=== PATIENT | male | born 1940 | race Caucasian/White ===

== ENCOUNTER 2020-09-17 11:16 | Outpatient (REF) | payer MEDICARE, SELFPAY ==
[2020-09-17 14:24] LABS: Glucose Urine UA NEG (NEG); Leukocyte Esterase Urine NEG (NEG); Nitrite Urine NEG (NEG); PH 5.5 (5.0-8.0); Specific Gravity - Urine >= 1.030 (1.005-1.025); Urine Blood NEG (NEG); Urine Ketones 15 MG/DL (NEG); Urine Protein TRACE MG/DL (NEG-TRACE)
[2020-09-17 14:29] LABS: Appearance Urine CLEAR; Color Urine YELLOW
[2020-09-17 14:32] LABS: Alanine Aminotransferase 23 U/L (0-40); Albumin Level 4.6 g/dL (3.5-5.0); Alkaline Phosphatase 65 U/L (39-117); Anion Gap 14 (12-20); Aspartate Amino Transferase 30 U/L (5-37); Bilirubin Total 0.5 mg/dL (0.0-1.0); Blood Urea Nitrogen 24 mg/dL (9-16); Calcium 8.8 mg/dL (8.4-10.2); Carbon Dioxide 27 mmol/L (22-29); Chloride 105 mmol/L (96-108); Cholesterol 140 mg/dL; Estimated Glomerular Filt Rate 47; Glucose Fasting 127 mg/dL (60-99); HDL Cholesterol 39 mg/dL; LDL Cholesterol Calculated 67 mg/dl; Potassium 4.5 mmol/L (3.3-5.1); Sodium 141 mmol/L (135-145); Total Protein 6.9 g/dL (6.5-8.0); Triglycerides 173 mg/dL
[2020-09-17 14:54] LABS: TSH reflex Free T4 5.44 uIU/mL (0.32-4.0)
[2020-09-17 15:30] LABS: Free T4 (Free Thyroxine) 0.76 ng/dL (0.71-1.85)
== END 2020-09-17 11:17 | disposition home or self-care (01) ==
LOC: HO.WFDLDS 11:16
PROVIDERS: Visit Provider Family Medicine
DX: Z00.00 Encounter for general adult medical examination without abnormal findings (principal); E11.9 Type 2 diabetes mellitus without complications; E78.5 Hyperlipidemia, unspecified; I10 Essential (primary) hypertension
CPT/HCPCS: 36415; 80053; 80061; 81003; 82043; 84439; 84443

== ENCOUNTER 2021-01-08 10:45 | Outpatient (REF) | payer MEDICARE, SELFPAY ==
[2021-01-08 14:28] LABS: Alanine Aminotransferase 21 U/L (0-40); Albumin Level 4.5 g/dL (3.5-5.0); Alkaline Phosphatase 89 U/L (39-117); Anion Gap 12 (12-20); Aspartate Amino Transferase 22 U/L (5-37); Bilirubin Total 0.4 mg/dL (0.0-1.0); Blood Urea Nitrogen 21 mg/dL (9-16); Calcium 8.5 mg/dL (8.4-10.2); Carbon Dioxide 24 mmol/L (22-29); Chloride 109 mmol/L (96-108); Estimated Glomerular Filt Rate 56; Glucose Random 146 mg/dL (60-115); Potassium 4.8 mmol/L (3.3-5.1); Sodium 140 mmol/L (135-145); Total Protein 6.6 g/dL (6.5-8.0)
[2021-01-08 14:50] LABS: Prostate Specific Antigen Scr 1.33 ng/mL (<0.05-4.0); TSH reflex Free T4 3.38 uIU/mL (0.32-4.0)
== END 2021-01-08 10:46 | disposition home or self-care (01) ==
LOC: HO.WFDLDS 10:45
PROVIDERS: Visit Provider Family Medicine
DX: R79.89 Other specified abnormal findings of blood chemistry (principal); Z12.5 Encounter for screening for malignant neoplasm of prostate
CPT/HCPCS: 36415; 80053; 84153; 84443

== ENCOUNTER 2021-06-29 10:16 | Outpatient (REF) | payer MEDICARE, SELFPAY ==
--- NOTE | ~2021-06-29 | XR_ITS ---
EXAMINATION: XR CHEST CLINICAL INFORMATION: Other specified symptoms and signs involving the... COMPARISON: Chest x-ray 10/26/2011 TECHNIQUE: 2 views of the chest were obtained. FINDINGS: Lungs are clear. No pulmonary vascular congestion. There is no pleural effusion. The heart size is normal. The cardiac and mediastinal contours are normal. There are multilevel degenerative changes of dorsal spine. XR/XR chest 2V IMPRESSION: Unremarkable examination.
[2021-06-29 11:23] LABS: Estimated Average Glucose 134 mg/dL; Hemoglobin A1C 135.1217 umol/L; Hemoglobin A1c % 6.3 %
[2021-06-29 11:46] LABS: Alanine Aminotransferase 25 U/L (0-40); Albumin Level 4.4 g/dL (3.5-5.0); Alkaline Phosphatase 44 U/L (39-117); Anion Gap 15 (12-20); Aspartate Amino Transferase 31 U/L (5-37); Bilirubin Total 0.6 mg/dL (0.0-1.0); Blood Urea Nitrogen 16 mg/dL (9-16); Calcium 8.6 mg/dL (8.4-10.2); Carbon Dioxide 22 mmol/L (22-29); Chloride 108 mmol/L (96-108); Cholesterol 138 mg/dL; Estimated Glomerular Filt Rate 52; Glucose Fasting 131 mg/dL (60-99); HDL Cholesterol 39 mg/dL; LDL Cholesterol Calculated 60 mg/dl; Sodium 141 mmol/L (135-145); Total Protein 6.7 g/dL (6.5-8.0); Triglycerides 196 mg/dL
[2021-06-29 11:53] LABS: TSH reflex Free T4 5.14 uIU/mL (0.32-4.0)
== END 2021-06-29 10:17 | disposition home or self-care (01) ==
LOC: HO.XRAY 10:16
PROVIDERS: PCP Family Medicine; Visit Provider Family Medicine
DX: Z00.00 Encounter for general adult medical examination without abnormal findings (principal); R73.01 Impaired fasting glucose; R05.9 Cough, unspecified; R09.89 Other specified symptoms and signs involving the circulatory and respiratory systems
CPT/HCPCS: 36415; 71046; 80053; 80061; 83036; 84439; 84443

== ENCOUNTER 2021-08-12 11:47 | Outpatient (REF) | payer MEDICARE, SELFPAY ==
[2021-08-12 14:15] LABS: Free T4 (Free Thyroxine) 0.75 ng/dL (0.71-1.85); Thyroid Stimulating Hormone 4.63 uIU/mL (0.32-4.0)
[2021-08-13 07:56] LABS: Triiodothyronine T3 Total 83 ng/dL (76-181)
== END 2021-08-12 11:48 | disposition home or self-care (01) ==
LOC: HO.WFDLDS 11:47
PROVIDERS: Visit Provider Family Medicine
DX: E03.9 Hypothyroidism, unspecified (principal); R79.89 Other specified abnormal findings of blood chemistry
CPT/HCPCS: 36415; 84439; 84443; 84480

== ENCOUNTER 2021-09-09 11:13 | Outpatient (REF) | payer MEDICARE, SELFPAY ==
[2021-09-09 14:38] LABS: TSH reflex Free T4 6.06 uIU/mL (0.32-4.0)
[2021-09-09 15:12] LABS: Free T4 (Free Thyroxine) 0.65 ng/dL (0.71-1.85)
== END 2021-09-09 11:14 | disposition home or self-care (01) ==
LOC: HO.WFDLDS 11:13
PROVIDERS: Visit Provider Family Medicine
DX: Z00.00 Encounter for general adult medical examination without abnormal findings (principal); Z13.29 Encounter for screening for other suspected endocrine disorder
CPT/HCPCS: 36415; 84439; 84443

== ENCOUNTER 2021-11-15 12:32 | Outpatient (REF) | payer SELFPAY | END 2021-11-15 12:33 | disposition home or self-care (01) | LOC: HO.HAP 12:32 | PROVIDERS: Visit Provider Family Medicine | DX: Z46.1 Encounter for fitting and adjustment of hearing aid (principal); H90.3 Sensorineural hearing loss, bilateral | CPT/HCPCS: V5266 ==

== ENCOUNTER 2022-02-18 11:40 | Outpatient (REF) | payer MEDICARE, SELFPAY ==
[2022-02-18 11:56] LABS: MANUAL DIFF FLAG NO
[2022-02-18 12:14] LABS: Basophils Percent Auto 0.9 % (0-2); Eosinophils Absolute Auto 0.2 X10*3/uL (0.0-0.4); Hematocrit 39.3 % (42.0-52.0); Imm Gran Abs Auto 0.02 X10*3/uL (0.00-0.03); Imm Gran Pct Auto 0.4 % (0.0-0.4); Lymphocytes Absolute Auto 1.1 X10*3/uL (1.2-4.9); Lymphocytes Percent Auto 24.7 % (20-40); Mean Corpuscular HGB Conc 33.1 g/dl (31.0-36.0); Mean Corpuscular Hemoglobin 29.8 pg (27.0-33.0); Mean Corpuscular Volume 90.1 fL (80.0-98.0); Mean Platelet Volume 9.4 fL (9.4-12.4); Monocytes Absolute Auto 0.6 X10*3/uL (0.1-1.2); Monocytes Percent Auto 12.7 % (2-11); Neutrophils Absolute Auto 2.6 x10*3/uL (2.0-8.3); Neutrophils Percent Auto 57.3 % (45-73); Platelet Count 138 X10*3/uL (160-400); Red Blood Count 4.36 X10*6/uL (4.60-5.80); Red Cell Distribution Width 12.9 % (11.0-16.0); White Blood Count 4.5 X10*3/uL (4.8-10.8)
[2022-02-18 12:32] LABS: Appearance Urine CLEAR; Color Urine YELLOW; Glucose Urine UA NEG (NEG); Leukocyte Esterase Urine NEG (NEG); Nitrite Urine NEG (NEG); Specific Gravity - Urine 1.025 (1.005-1.025); Urine Blood NEG (NEG); Urine Ketones NEG (NEG); Urine Protein NEG (NEG-TRACE)
[2022-02-18 14:01] LABS: Creatinine Urine 152.98 mg/dL; Microalbum/Creatinine Ratio Ur 13.7 ug/mg cr
[2022-02-18 14:07] LABS: Alanine Aminotransferase 30 U/L (0-40); Albumin Level 4.7 g/dL (3.5-5.0); Alkaline Phosphatase 63 U/L (39-117); Anion Gap 15 (12-20); Aspartate Amino Transferase 32 U/L (5-37); Bilirubin Total 0.7 mg/dL (0.0-1.0); Blood Urea Nitrogen 31 mg/dL (9-16); Calcium 8.9 mg/dL (8.4-10.2); Carbon Dioxide 23 mmol/L (22-29); Chloride 107 mmol/L (96-108); Cholesterol 145 mg/dL; Estimated Glomerular Filt Rate 48; Glucose Fasting 141 mg/dL (60-99); HDL Cholesterol 42 mg/dL; LDL Cholesterol Calculated 67 mg/dl; Sodium 140 mmol/L (135-145); Total Protein 7.1 g/dL (6.5-8.0); Triglycerides 180 mg/dL
[2022-02-18 14:13] LABS: Prostate Specific Antigen Scr 1.61 ng/mL (<0.05-4.0); TSH reflex Free T4 3.05 uIU/mL (0.32-4.0)
== END 2022-02-18 11:41 | disposition home or self-care (01) ==
LOC: HO.LAB 11:40
PROVIDERS: PCP Family Medicine; Visit Provider Family Medicine
DX: Z00.00 Encounter for general adult medical examination without abnormal findings (principal); Z12.5 Encounter for screening for malignant neoplasm of prostate; I10 Essential (primary) hypertension
CPT/HCPCS: 36415; 80053; 80061; 81003; 82043; 84153; 84443; 85025

== ENCOUNTER 2022-04-01 11:36 | Outpatient (REF) | payer MEDICARE, SELFPAY ==
[2022-04-01 12:45] LABS: Immature Retic Fraction 11.8 % (2.3-13.4); Retic HGB Equivalent 34.9 pg (30.0-35.0); Reticulocyte Percent 2.3 % (0.5-1.8); Reticulocytes Absolute 0.097 X10*6/uL (0.026-0.095)
[2022-04-01 13:05] LABS: Iron 85 mcg/dL (45-160); Percent Iron Saturation 19 % (15-50); Total Iron Binding Capacity 459 mcg/dL (228-428); Unsaturated Iron Binding 374 ug/dL
[2022-04-01 13:27] LABS: Ferritin 50 ng/mL (20-250)
[2022-04-01 13:37] LABS: Folate 12.2 ng/mL (> or = 4.0); Vitamin B12 332 pg/mL (200-900)
== END 2022-04-01 11:37 | disposition home or self-care (01) ==
LOC: HO.LAB 11:36
PROVIDERS: PCP Family Medicine; Visit Provider Nurse Practitioner Family
DX: D64.9 Anemia, unspecified (principal)
CPT/HCPCS: 36415; 82607; 82728; 82746; 83540; 85045

== ENCOUNTER → 2022-04-11 10:39 | Outpatient (BNV) | payer MEDICARE, SELFPAY | PROVIDERS: PCP Family Medicine; Referring Provider Nurse Practitioner Family; Visit Provider Internal Medicine | DX: D61.818 Other pancytopenia (principal); D64.9 Anemia, unspecified; D73.1 Hypersplenism | CPT/HCPCS: 99204; 99214; G2211 ==

== ENCOUNTER 2022-04-22 12:47 | Outpatient (REF) | payer MEDICARE, SELFPAY ==
--- NOTE | ~2022-04-22 | US_ITS ---
EXAMINATION: US ABDOMEN COMPLETE CLINICAL INFORMATION: Question splenomegaly. COMPARISON: None TECHNIQUE: Real-time imaging of the abdominal viscera. FINDINGS: PANCREAS: Normal. ABDOMINAL AORTA: The proximal, mid, and distal segments are normal in caliber. INFERIOR VENA CAVA: Visualized portions are normal. LIVER: Liver parenchyma is hyperechoic, consistent with steatosis. No focal liver lesion or intrahepatic bile duct dilatation. GALLBLADDER: The gallbladder is physiologically distended and contains mild amount of sludge and a few small echogenic stones. No gallbladder wall thickening or pericholecystic fluid. COMMON BILE DUCT: Normal in caliber measuring 0.4 cm in diameter. RIGHT KIDNEY: Normal size. The kidney measures 11.4 cm in maximum dimension. No nephrolithiasis or hydronephrosis. 1.5 cm simple cortical cyst in the interpolar area. No renal imaging follow-up recommended. LEFT KIDNEY: Normal. No hydronephrosis. No renal calculi or focal parenchymal lesions. The kidney measures 10.4 cm in maximum dimension. SPLEEN: Spleen borderline enlarged; it measures 13.5 cm in maximum dimension. No focal splenic lesion or perisplenic fluid. FREE FLUID: None. US/US abdomen complete IMPRESSION: * Diffuse hepatic steatosis. * There is a borderline enlarged spleen. The spleen measures up to 13.5 cm maximum dimension. * Mild cholelithiasis without cholecystitis or biliary tract obstruction.
== END 2022-04-22 12:48 | disposition home or self-care (01) ==
LOC: HO.US 12:47
PROVIDERS: Visit Provider Internal Medicine
DX: D61.818 Other pancytopenia (principal)
CPT/HCPCS: 76700

== ENCOUNTER 2022-06-28 12:50 | Outpatient (REF) | payer SELFPAY | END 2022-06-28 12:51 | disposition home or self-care (01) | LOC: HO.HAP 12:50 | PROVIDERS: Visit Provider Family Medicine | DX: Z46.1 Encounter for fitting and adjustment of hearing aid (principal); H90.3 Sensorineural hearing loss, bilateral | CPT/HCPCS: V5267 ==

== ENCOUNTER 2022-10-05 12:08 | Outpatient (REF) | payer MEDICARE, SELFPAY ==
[2022-10-05 12:26] LABS: MANUAL DIFF FLAG NO
[2022-10-05 12:33] LABS: Eosinophils Absolute Auto 0.1 X10*3/uL (0.0-0.4); Eosinophils Percent Auto 1.9 % (0-4); Hemoglobin 12.2 g/dl (14.0-18.0); Imm Gran Abs Auto 0.03 X10*3/uL (0.00-0.03); Imm Gran Pct Auto 0.7 % (0.0-0.4); Lymphocytes Absolute Auto 0.5 X10*3/uL (1.2-4.9); Lymphocytes Percent Auto 12.6 % (20-40); Mean Corpuscular Hemoglobin 30.1 pg (27.0-33.0); Mean Corpuscular Volume 91.4 fL (80.0-98.0); Monocytes Absolute Auto 0.5 X10*3/uL (0.1-1.2); Monocytes Percent Auto 12.6 % (2-11); Neutrophils Percent Auto 71.2 % (45-73); Platelet Count 172 X10*3/uL (160-400); Red Blood Count 4.05 X10*6/uL (4.60-5.80); White Blood Count 4.2 X10*3/uL (4.8-10.8)
[2022-10-05 12:54] LABS: Alanine Aminotransferase 28 U/L (0-40); Albumin Level 4.3 g/dL (3.5-5.0); Alkaline Phosphatase 53 U/L (39-117); Anion Gap 14 (12-20); Aspartate Amino Transferase 37 U/L (5-37); Bilirubin Total 0.7 mg/dL (0.0-1.0); Blood Urea Nitrogen 28 mg/dL (9-16); Carbon Dioxide 19 mmol/L (22-29); Chloride 110 mmol/L (96-108); Estimated Glomerular Filt Rate 43; Glucose Fasting 154 mg/dL (60-99); Potassium 5.2 mmol/L (3.3-5.1); Sodium 138 mmol/L (135-145); Total Protein 6.8 g/dL (6.5-8.0)
[2022-10-05 14:26] LABS: Estimated Average Glucose 143 mg/dL; Hemoglobin A1c % 6.6 %
== END 2022-10-05 12:09 | disposition home or self-care (01) ==
LOC: HO.LAB 12:08
PROVIDERS: PCP Family Medicine; Visit Provider Family Medicine
DX: Z00.00 Encounter for general adult medical examination without abnormal findings (principal); R73.01 Impaired fasting glucose
CPT/HCPCS: 36415; 80053; 83036; 85025

== ENCOUNTER 2022-10-06 15:24 | Outpatient (REF) | payer MEDICARE, SELFPAY ==
--- NOTE | ~2022-10-06 | XR_ITS ---
EXAMINATION: XR CHEST CLINICAL INFORMATION: Cough COMPARISON: 06/29/2021 TECHNIQUE: 2 views of the chest were obtained. FINDINGS: The lungs are well expanded. There is no focal consolidation, edema, or effusion. No pneumothorax. The cardiomediastinal silhouette is within normal limits. No acute osseous abnormality. Degenerative changes throughout the spine. XR/XR chest 2V IMPRESSION: Clear lungs.
[2022-10-06 19:50] LABS: Influenza A PCR NEGATIVE (Negative); Influenza B PCR NEGATIVE (Negative); Resp Syncy Virus RNA Qual PCR NEGATIVE (Negative); SARS COV2 PCR INHOUSE POSITIVE (Negative)
== END 2022-10-06 15:25 | disposition home or self-care (01) ==
LOC: HO.HMGCX 15:24
PROVIDERS: PCP Family Medicine; Visit Provider Physician Assistant Medical
DX: Z20.822 Contact with and (suspected) exposure to COVID-19 (principal); R05.9 Cough, unspecified
CPT/HCPCS: 0241U; 71046

== ENCOUNTER 2022-12-09 12:34 | Outpatient (REF) | payer SELFPAY | END 2022-12-09 12:35 | disposition home or self-care (01) | LOC: HO.HAP 12:34 | PROVIDERS: Visit Provider Family Medicine | DX: Z46.1 Encounter for fitting and adjustment of hearing aid (principal) | CPT/HCPCS: V5266 ==

== ENCOUNTER 2023-01-16 12:34 | Outpatient (REF) | payer SELFPAY | END 2023-01-16 12:35 | disposition home or self-care (01) | LOC: HO.HAP 12:34 | PROVIDERS: Visit Provider Family Medicine | DX: Z46.1 Encounter for fitting and adjustment of hearing aid (principal); H90.3 Sensorineural hearing loss, bilateral | CPT/HCPCS: V5267 ==

== ENCOUNTER 2023-02-24 14:34 | Outpatient (AMB) | payer MEDICARE, SELFPAY ==
[2023-02-24 14:45] VITALS: BP 126/74; PULSE 74; O2SAT 96; BMI 29.3
--- NOTE | 2023-02-24 14:45 | MHC.PC.OV ---
Vital Signs 02/24/23 14:45 Height 5 ft 11 in Weight 210 lb BMI 29.3 BP 126/74 Blood Pressure Location Lt brachial Position Sitting Pulse 74 Pulse Source Pulse Oximeter Pulse Oximetry (%) 96 Oxygen Delivery Method Room Air Intake Visit Reasons: F/u-Diabetes - due for Microalbumin Intake Note: Patient is here to follow up on diabetes. Allergies No Known Allergies [No Known Allergies*] Allergy (Verified 02/24/23 14:48) Medication List - Last Reconciled 02/24/23 by Naga Leon MD albuterol sulfate 90 mcg/actuation (ProAir HFA) 2 puffs inhalation Q4-6H PRN 30 days amoxicillin-pot clavulanate 875-125 mg 1 tab PO BID ferrous sulfate (Feosol) 325 mg PO DAILY lisinopril 20 mg PO DAILY 90 days lorazepam 1 mg PO BID 30 days metformin 1,000 mg PO BID omeprazole 20 mg PO DAILY 90 days oseltamivir 75 mg PO Q12H 5 days sertraline 100 mg PO DAILY simvastatin 40 mg PO DAILY 90 days Tobacco use date assessed: 02/24/23 Fall risk assessment: No Falls in past year Last assessed Fall Risk: 02/24/23 Dental Screening Dental Screen Date: 02/24/23 Did you have a dental visit in the last 12 months?: Yes Did you have a dental problem in the last 6 months where you did not have access to dental care?: No Was dental information given to patient?: No HPI F/u-Diabetes - due for Microalbumin HPI Details 82 y/o male presents to f/u diabetes and hypertension. Last A1c 11/22/21 was 6.6%. A1c today 02/24/23 is 6.3%. He is on metformin 1000mg b.i.d. Blood pressure today is 126/74. He is on lisinopril 20mg daily. Recent eye exam was fine and showed no diabetic retinopathy. [facility] Surgical History No pertinent past surgical history Family History Brother Prostate cancer Son Muscular dystrophy Social History Household Members: Children Housing: House Alcohol intake: never Patient Tobacco Use Status: Never used Tobacco e-Cigarette/Vaping Use: Never Used Second Hand Smoke Exposure: No service: No Current occupational status: retired Current occupational exposures/hazards: No Cognitive needs: No Hearing needs: Yes (hearing aide) Vision needs: No Questionnaire PHQ-9 Over the last 2 weeks, how often have you been bothered by any of the following problems? 1. Little interest or pleasure in doing things: not at all 2. Feeling down, depressed, or hopeless: not at all 3. Trouble falling or staying asleep, or sleeping too much: not at all 4. Feeling tired or having little energy: not at all 5. Poor appetite or overeating: not at all 6. Feeling bad about yourself - or that you are a failure or have let yourself or your family down: not at all 7. Trouble concentrating on things, such as reading the newspaper or watching television: not at all 8. Moving or speaking so slowly that other people could have noticed. Or the opposite - being so fidgety or restless that you have been moving around a lot more than usual: not at all 9. Thoughts that you would be better off or of hurting yourself in some way: not at all Total score: 0 Source: Developed by Drs. Mayco Pelletier, Rachel Hu, Roge Fairchild and colleagues, with an educational sylvain from [employer]. Thrive Questionnaire I am a: Patient What is your living situation today?: I have a steady place to live Within the past 12 months, did the food you bought not last and you didn't have the money to get more?: Never true Within the past 12 months, did you worry whether your food would run out before you got money to buy more?: Never true Do you have trouble paying for medicines?: No Do you have trouble getting transportation to medical appointments?: No Do you have trouble paying your heating and electricity bill?: No Do you have trouble taking care of your child, family member or friend?: No Do you have trouble with day-to-day activities such as bathing, preparing meals, shopping, managing finances, etc.?: No Are you currently unemployed and looking for a job?: No Are you interested in more education?: No AUDIT C Alcohol Use Questionnaire (AUDIT-C) 1. How often do you have a drink containing alcohol?: Never 3. How often do you have six or more drinks on one occasion?: Never Total Score: 0 KOMAL-7 AMB Questionnaire KOMAL-7 Date KOMAL - 7 assessed: 03/14/22 Feeling nervous, anxious, or on edge: 1 = Several days Not being able to stop or control worryin = Several days Worrying too much about different things: 1 = Several days Trouble relaxin = Not at all Being so restless that it is hard to sit still: 0 = Not at all Becoming easily annoyed or irritable: 1 = Several days Feeling afraid as if something awful might happen: 0 = Not at all Total KOMAL-7 score (0-4 normal; 5-9 mild; 10-14 moderate; 15-21 severe): 4 Source: Developed by Drs. Mayco Pelletier, Rachel Hu, Roge Fairchild and colleagues, with an educational sylvain from [employer]. Review of Systems Const Denies chills, Denies fatigue, Denies fever(s), Denies headache(s) and Denies weakness ENT Denies dizziness and Denies headache(s) Card Denies chest pain, Denies lightheadedness, Denies dyspnea and Denies other (Palpitations) Resp Denies cough, Denies dyspnea, Denies wheezing and Denies other ( shortness of breath) Musc Denies numbness and Denies tingling Neuro Denies dizziness, Denies headache(s), Denies numbness, Denies tingling, Denies paresthesias and Denies weakness Psych Denies anxiety and Denies depression Endo Denies fatigue Aller/Immun Denies wheezing Physical exam (Primary Care) Vital Signs: Last Vital Signs Pulse 74 02/24/23 14:45 BP 126/74 02/24/23 14:45 Pulse Ox 96 02/24/23 14:45 Oxygen Delivery Method Room Air 02/24/23 14:45 BMI result Body Mass Index 29.3 Tobacco/Smoking Status: Tobacco use Status Tobacco use date assessed 02/24/23 02/24/23 15:01 Patient Tobacco Use Status Never used Tobacco 02/24/23 15:01 e-Cigarette/Vaping Use Never Used 02/24/23 15:01 PHQ-9: PHQ-9 Score PHQ-9: Total score 0 02/24/23 15:01 Const General: no acute distress and well developed Nutritional Appearance: well nourished Orientation/consciousness: patient oriented x3 HENMT Head: Yes normocephalic and Yes atraumatic Eyes General: appearance normal, both eyes and all related structures Pupils: Equal, round and reactive pupils present EOM: EOMs intact bilaterally Resp Effort & Inspection: normal respiratory effort Auscultation: clear to auscultation bilaterally Cardio Rate: regular rate Rhythm: regular rhythm Heart sounds: S1 normal heart sound present, S2 normal heart sound present, no gallops, no murmurs and no rubs Neuro General: patient oriented x3 and gait normal Cranial nerves: Yes Equal, round and reactive pupils present Psych Affect: normal affect Results AMB Hemoglobin A1c AMB Hemoglobin A1c 6.3 % Last Edit by Claudia Summers CMA on 02/24/23 15:11 Assessment and Plan Assessment & Plan (1) Diabetes type 2, controlled: Code(s): E11.9 - Type 2 diabetes mellitus without complications Plan: A1c 6.3% which is good control. Goal is less than 7.0% Continue current medication regimen Due for urine microalbumin testing which will be performed today Recent eye exam in December showed no diabetic retinopathy (2) Essential hypertension: Code(s): I10 - Essential (primary) hypertension Plan: Blood pressure is controlled. Goal is less than 140/90 Continue current medication regimen (3) Immunization counseling: Code(s): Z71.85 - Encounter for immunization safety counseling Plan: Discussed flu, COVID and RSV vaccines which patient will get in the fall (4) Elevated serum creatinine: Code(s): R79.89 - Other specified abnormal findings of blood chemistry Plan: He has had mildly elevated creatinine levels Will follow this If worsening, may need to adjust his metformin Orders: Orders Microalbumin, Random (w Creat) Today E11.9 - Type 2 diabetes mellitus without complications, I10 - Essential (primary) hypertension Comprehensive [place]. Panel Fast Today E11.9 - Type 2 diabetes mellitus without complications, Z00.00 - Encounter for general adult medical examination without abnormal findings Lipid Panel Today E11.9 - Type 2 diabetes mellitus without complications, Z00.00 - Encounter for general adult medical examination without abnormal findings Prostate Specific Antigen Scr Today E11.9 - Type 2 diabetes mellitus without complications, Z12.5 - Encounter for screening for malignant neoplasm of prostate TSH reflex Free T4 Today E11.9 - Type 2 diabetes mellitus without complications, Z00.00 - Encounter for general adult medical examination without abnormal findings Complete Blood Count Auto Diff Today E11.9 - Type 2 diabetes mellitus without complications, Z00.00 - Encounter for general adult medical examination without abnormal findings UA and rflx microscopic Today E11.9 - Type 2 diabetes mellitus without complications, Z00.00 - Encounter for general adult medical examination without abnormal findings AMB Hemoglobin A1c Today Z13.9 - Encounter for screening, unspecified Medications: Refilled lorazepam MassPat verified. Partial refill upon request. 1 mg PO BID 30 days 60 tabs 0RF E11.9 - Type 2 diabetes mellitus without complications Coding Level of Care Code Est Pt Level 4 (52719) Diagnoses Diabetes type 2, controlled E11.9 Essential hypertension I10 Immunization counseling Z71.85 Elevated serum creatinine R79.89
== END 2023-02-24 15:25 | disposition home or self-care (01) ==
PROVIDERS: Visit Provider Family Medicine
DX: E11.9 Type 2 diabetes mellitus without complications (principal); I10 Essential (primary) hypertension; Z71.85 Encounter for immunization safety counseling; R79.89 Other specified abnormal findings of blood chemistry; Z13.9 Encounter for screening, unspecified
CPT/HCPCS: 83036; 99214

== ENCOUNTER 2023-02-24 18:28 | Outpatient (REF) | payer MEDICARE, SELFPAY ==
[2023-02-24 18:54] LABS: Creatinine Urine 106.58 mg/dL; Microalbum/Creatinine Ratio Ur 9.3 ug/mg cr
== END 2023-02-24 18:29 | disposition home or self-care (01) ==
LOC: HO.LNP 18:28
PROVIDERS: Visit Provider Family Medicine
DX: E11.9 Type 2 diabetes mellitus without complications (principal); I10 Essential (primary) hypertension
CPT/HCPCS: 82043

== ENCOUNTER 2023-04-03 09:52 | Outpatient (AMB) | payer MEDICARE, SELFPAY ==
--- NOTE | 2023-04-03 10:45 | MHC.OFFWIV ---
Intake Vital Signs 04/03/23 10:46 Weight 205 lb BP 112/66 Blood Pressure Location Rt brachial Position Sitting Pulse 78 Pulse Source Pulse Oximeter Pulse Oximetry (%) 97 Oxygen Delivery Method Room Air Intake Visit Reasons: EP LT Knee Intake Note: Patient here because he injured his left knee when he fell while working in the yard. Patient Tobacco Use Status: Never used Tobacco Allergies No Known Allergies [No Known Allergies*] Allergy (Verified 02/24/23 14:48) Do you need a note to return to daycare/school/sports/work: No HPI EP LT Knee HPI Details 82-year-old male presents to the office for a sick visit. Patient reports pain in the left knee in the past week. Symptoms started after he fell while mowing the lawn. Patient is experiencing sharp pain on the left side of the knee. Walking with a limp. PFS Surgical History No pertinent past surgical history Family History Brother Prostate cancer Son Muscular dystrophy Social History Household Members: Children Housing: House Alcohol intake: never Patient Tobacco Use Status: Never used Tobacco e-Cigarette/Vaping Use: Never Used Second Hand Smoke Exposure: No service: No Current occupational status: retired Current occupational exposures/hazards: No Cognitive needs: No Hearing needs: Yes (hearing aide) Vision needs: No Physical Exam Vital Signs: Last Vital Signs Pulse 78 04/03/23 10:46 BP 112/66 04/03/23 10:46 Pulse Ox 97 04/03/23 10:46 Oxygen Delivery Method Room Air 04/03/23 10:46 Const General: cooperative and healthy appearing Nutritional Appearance: well nourished Orientation/consciousness: patient oriented x3 Limitations: no limitations HEENT Head: Yes normal to inspection Eyes General: appearance normal, both eyes and all related structures Neck Neck: Yes normal visual inspection Chest Chest palpation & inspection: normal palpation of entire chest wall Resp Effort & Inspection: normal respiratory effort Neuro General: patient oriented x3 Extrem Other: Knee: Tenderness on palpation on the medial side of the joint. Full range of motion. Assessment & Plan Assessment & Plan (1) Sprain of left knee: Code(s): S83.92XA - Sprain of unspecified site of left knee, initial encounter Plan: . Knee brace provided. Anti-inflammatories given. X-ray images were personally reviewed by me. If symptoms not better to follow-up Coding Level of Care Code Est Pt Level 4 (45216) Diagnoses Sprain of left knee S83.92XA
[2023-04-03 10:46] VITALS: BP 112/66; PULSE 78; O2SAT 97
== END 2023-04-03 11:50 | disposition home or self-care (01) ==
PROVIDERS: PCP Family Medicine; Visit Provider Internal Medicine
DX: S83.92XA Sprain of unspecified site of left knee, initial encounter (principal)
CPT/HCPCS: 99214

== ENCOUNTER 2023-04-03 09:54 | Outpatient (REF) | payer MEDICARE, SELFPAY ==
--- NOTE | ~2023-04-03 | XR_ITS ---
EXAMINATION: XR KNEE, LEFT CLINICAL INFORMATION: Sprain COMPARISON: None available. TECHNIQUE: Four views of the left knee. FINDINGS: Bone alignment is normal. No fracture or dislocation. The femoral tibial joints are normal. There are osteophytes at the patellofemoral joint. There is an osteophyte at the quadriceps tendon insertion to the patella. There is no significant joint effusion. XR/XR knee LT 4V IMPRESSION: Degenerative changes.
[2023-04-03 11:50] LABS: MANUAL DIFF FLAG NO
[2023-04-03 12:11] LABS: Basophils Absolute Auto 0.1 X10*3/uL (0.0-0.2); Basophils Percent Auto 1.7 % (0-2); Eosinophils Absolute Auto 0.1 X10*3/uL (0.0-0.4); Eosinophils Percent Auto 2.1 % (0-4); Hemoglobin 12.4 g/dl (14.0-18.0); Imm Gran Abs Auto 0.02 X10*3/uL (0.00-0.03); Imm Gran Pct Auto 0.5 % (0.0-0.4); Lymphocytes Absolute Auto 1.4 X10*3/uL (1.2-4.9); Lymphocytes Percent Auto 33.6 % (20-40); Mean Corpuscular HGB Conc 33.5 g/dl (31.0-36.0); Mean Corpuscular Hemoglobin 30.8 pg (27.0-33.0); Mean Corpuscular Volume 91.8 fL (80.0-98.0); Mean Platelet Volume 9.8 fL (9.4-12.4); Monocytes Absolute Auto 0.5 X10*3/uL (0.1-1.2); Neutrophils Absolute Auto 2.2 x10*3/uL (2.0-8.3); Neutrophils Percent Auto 51.1 % (45-73); Platelet Count 144 X10*3/uL (160-400); Red Blood Count 4.03 X10*6/uL (4.60-5.80); Red Cell Distribution Width 12.1 % (11.0-16.0); White Blood Count 4.2 X10*3/uL (4.8-10.8)
[2023-04-03 12:33] LABS: Prostate Specific Antigen Scr 1.73 ng/mL (<0.05-4.0)
[2023-04-03 12:42] LABS: Alanine Aminotransferase 25 U/L (0-40); Albumin Level 4.6 g/dL (3.5-5.0); Alkaline Phosphatase 53 U/L (39-117); Anion Gap 16 (12-20); Aspartate Amino Transferase 29 U/L (5-37); Bilirubin Total 0.6 mg/dL (0.0-1.0); Blood Urea Nitrogen 31 mg/dL (9-16); Calcium 9.8 mg/dL (8.4-10.2); Carbon Dioxide 18 mmol/L (22-29); Chloride 110 mmol/L (96-108); Cholesterol 139 mg/dL (<200); Estimated Glomerular Filt Rate 36; Glucose Fasting 139 mg/dL (60-99); HDL Cholesterol 42 mg/dL (>40); LDL Cholesterol Calculated 53 mg/dL (<100); Potassium 4.5 mmol/L (3.3-5.1); Sodium 139 mmol/L (135-145); Total Protein 7.2 g/dL (6.5-8.0); Triglycerides 220 mg/dL (<150)
[2023-04-03 12:47] LABS: TSH reflex Free T4 6.67 uIU/mL (0.32-4.0)
[2023-04-03 13:23] LABS: Free T4 (Free Thyroxine) 0.67 ng/dL (0.71-1.85)
[2023-04-03 14:19] LABS: Appearance Urine Clear; Color Urine Yellow; Glucose Urine UA Negative (Negative); Leukocyte Esterase Urine Negative (Negative); Nitrite Urine Negative (Negative); PH 5.5 (5.0-9.0); Specific Gravity - Urine 1.025 (1.005-1.025); Urine Blood Negative (Negative); Urine Ketones Trace mg/dL (Negative); Urine Protein Trace mg/dL (Neg-Trace)
== END 2023-04-03 09:55 | disposition home or self-care (01) ==
LOC: HO.HMGCLDS 09:54
PROVIDERS: PCP Family Medicine; Visit Provider Family Medicine
DX: Z00.00 Encounter for general adult medical examination without abnormal findings (principal); Z12.5 Encounter for screening for malignant neoplasm of prostate; E11.9 Type 2 diabetes mellitus without complications; S83.92XA Sprain of unspecified site of left knee, initial encounter
CPT/HCPCS: 36415; 73564; 80053; 80061; 81003; 84153; 84439; 84443; 85025

== ENCOUNTER 2023-05-01 10:50 | Outpatient (REF) | payer MEDICARE, SELFPAY ==
[2023-05-01 12:18] LABS: Alanine Aminotransferase 19 U/L (0-40); Albumin Level 4.4 g/dL (3.5-5.0); Alkaline Phosphatase 52 U/L (39-117); Anion Gap 12 (12-20); Aspartate Amino Transferase 25 U/L (5-37); Bilirubin Total 0.6 mg/dL (0.0-1.0); Blood Urea Nitrogen 23 mg/dL (9-16); Carbon Dioxide 21 mmol/L (22-29); Chloride 110 mmol/L (96-108); Estimated Glomerular Filt Rate 43; Glucose Random 123 mg/dL (60-115); Potassium 4.3 mmol/L (3.3-5.1); Sodium 139 mmol/L (135-145); Total Protein 6.7 g/dL (6.5-8.0)
[2023-05-01 12:44] LABS: Thyroid Stimulating Hormone 7.07 uIU/mL (0.32-4.0)
[2023-05-02 22:42] LABS: Triiodothyronine T3 Total 73 ng/dL (76-181)
== END 2023-05-01 10:51 | disposition home or self-care (01) ==
LOC: HO.LAB 10:50
PROVIDERS: PCP Family Medicine; Visit Provider Family Medicine
DX: E03.9 Hypothyroidism, unspecified (principal); I10 Essential (primary) hypertension
CPT/HCPCS: 36415; 80053; 84439; 84443; 84480

== ENCOUNTER 2023-05-29 14:04 | Outpatient (AMB) | payer MEDICARE, SELFPAY ==
[2023-05-29 14:13] VITALS: BP 122/72; PULSE 82; O2SAT 96; BMI 28.7
--- NOTE | 2023-05-29 14:13 | A.OFFPC_ITS ---
Vital Signs 05/29/23 14:13 Height 5 ft 11 in Weight 206 lb BMI 28.7 BP 122/72 Blood Pressure Location Lt brachial Position Sitting Pulse 82 Pulse Source Pulse Oximeter Pulse Oximetry (%) 96 Oxygen Delivery Method Room Air Intake Visit Reasons: Extended exam with f/u labs and health maintenance Intake Note: Patient is here for follow up labs and health maintenance. Patient would like refills on his Simvastatin and Lorazepam. Allergies No Known Allergies [No Known Allergies*] Allergy (Verified 05/29/23 14:16) Tobacco use date assessed: 02/24/23 HPI Extended exam with f/u labs and health maintenance HPI Details 82 y/o male presents for an extended exa m with f/u labs and health maintenance. Labs were drawn 04/03/23. Reviewed labs with pt. Ongoing anemia. Last creatinine level 1.56 on 05/01/23. Triglycerides 220. TC 139. LDL 53. HDL 42. TSH elevated at 6.67. A1c today 05/29/23 is 6.4%. He is on metformin 1000mg b.i.d. Pt reports he does not remember when his last colonoscopy was. [facility] Surgical History No pertinent past surgical history Family History Brother Prostate cancer Son Muscular dystrophy Social History Household Members: Children Housing: House Alcohol intake: never Patient Tobacco Use Status: Never used Tobacco e-Cigarette/Vaping Use: Never Used Second Hand Smoke Exposure: No service: No Current occupational status: retired Current occupational exposures/hazards: No Cognitive needs: No Hearing needs: Yes (hearing aide) Vision needs: No Questionnaire KOMAL-7 AMB Questionnaire KOMAL-7 Date KOMAL - 7 assessed: 03/14/22 Source: Developed by Drs. Mayco Pelletier, Rachel Hu, Roge Fairchild and colleagues, with an educational sylvain from [employer]. Review of Systems Const Denies chills, Denies fatigue, Denies fever(s), Denies headache(s) and Denies weakness Eyes Denies change in vision ENT Denies dizziness, Denies headache(s), Denies hearing loss, Denies nasal congestion, Denies sinus pain, Denies sinus pressure and Denies sore throat Card Denies chest pain, Denies lightheadedness, Denies dyspnea and Denies other (palpitations) Resp Denies cough, Denies dyspnea and Denies wheezing GI Denies abdominal pain, Denies melena, Denies hematochezia, Denies change in bowel habits, Denies dyspepsia and Denies nausea Denies hematuria and Denies dysuria Musc Denies abnormal gait, Denies myalgias, Denies arthralgias, Denies numbness and Denies tingling Skin/Breast Denies rash, Denies unusual bruising and Denies wounds Neuro Denies abnormal gait, Denies dizziness, Denies headache(s), Denies memory loss, Denies numbness, Denies Sensory deficit (Neuro), Denies tingling and Denies weakness Psych Denies anxiety, Denies depression and Denies memory loss Endo Denies cold intolerance, Denies fatigue, Denies heat intolerance, Denies polydipsia and Denies polyuria Jose/Lymph Denies easy bleeding and Denies easy bruising Aller/Immun Denies wheezing Physical exam (Primary Care) Vital Signs: Last Vital Signs Pulse 82 05/29/23 14:13 BP 122/72 05/29/23 14:13 Pulse Ox 96 05/29/23 14:13 Oxygen Delivery Method Room Air 05/29/23 14:13 BMI result Body Mass Index 28.7 Tobacco/Smoking Status: Tobacco use Status Tobacco use date assessed 02/24/23 05/29/23 14:15 Patient Tobacco Use Status Never used Tobacco 05/29/23 14:15 e-Cigarette/Vaping Use Never Used 05/29/23 14:15 Const General: no acute distress, well developed, alert and awake Nutritional Appearance: well nourished Orientation/consciousness: patient oriented x3 HENMT Head: Yes normocephalic and Yes atraumatic Ears: hearing grossly normal bilaterally and TM's normal bilaterally General nose exam: Normal external nose present and Normal nares present Mouth: Normal oral and palatal mucosa present and moist mucous membranes Teeth and gingiva: dentition normal Throat: Yes posterior oropharynx normal Eyes General: appearance normal, both eyes and all related structures Pupils: Equal, round and reactive pupils present and Pupil accommodation reflex normal EOM: EOMs intact bilaterally Neck Neck: Yes normal visual inspection, Yes no lymphadenopathy and Yes trachea midline Thyroid: Thyroid normal Carotids: no bruits Lymphatic: no lymphadenopathy noted Chest Chest palpation & inspection: normal inspection of the chest Resp Effort & Inspection: normal respiratory effort Auscultation: clear to auscultation bilaterally Cardio Rate: regular rate Rhythm: regular rhythm Heart sounds: S1 normal heart sound present, S2 normal heart sound present, no gallops, no murmurs and no rubs Bruits: no abdominal aortic bruits and no carotid bruits GI Palpation (GI): No Abdominal aortic bruit present, Soft to palpation, nontender, No hepatosplenomegaly present and No Rebound tenderness present Auscultation: normal bowel sounds General: Yes no CVA tenderness Back/Spine/Pelvis Back: no CVA tenderness Cervical Spine: cervical ROM normal and No Cervical spine tenderness Thoracic/Lumbar Spine: thoraco-lumbar ROM normal, No pain with thoraco-lumbar ROM, No thoracic spinal tenderness and No lumbar spinal tenderness Skin Lesions: no lesions Rashes: no rashes Trauma: no lacerations or abrasions Wounds: no wounds Nails: normal Neuro General: patient oriented x3 Cranial nerves: Yes Equal, round and reactive pupils present Cognition (Neuro): normal cognition Gait exam (Neuro): Normal gait present Motor exam (neuro): 5/5 motor strength present throughout Sensory Exam: No Sensory deficit (Neuro) Deep tendon reflexes (DTR's): Right patellar reflex intensity grade: 2+ and Left patellar reflex intensity grade: 2+ Extrem General: Yes normal to inspection and No edema Psych Appearance: grossly normal Affect: normal affect Attitude: cooperative Thought process: Normal thought process present Results AMB Hemoglobin A1c AMB Hemoglobin A1c 6.4 % Last Edit by Claudia Summers CMA on 05/29/23 14:56 Assessment and Plan Assessment & Plan (1) Mild anemia: Code(s): D64.9 - Anemia, unspecified Plan: Stable (2) Elevated serum creatinine: Code(s): R79.89 - Other specified abnormal findings of blood chemistry Plan: Had?improved?at?last?check Hydrate?well Will?check?this?again?prior?to?his?next?visit If?still?high?or?higher,?may?need?adjustment?of?his?metformin (3) Hyperlipidemia: Code(s): E78.5 - Hyperlipidemia, unspecified Plan: Continue?simvastatin (4) Diabetes type 2, controlled: Code(s): E11.9 - Type 2 diabetes mellitus without complications Plan: A1c?6.4%.??Good?control.??Goal?is?less?than?7.0% Continue?current?medication?regimen (5) Essential hypertension: Code(s): I10 - Essential (primary) hypertension Plan: Controlled.??Goal?is?less?than?140/90 Continue?current?medication (6) Sleep apnea: Code(s): G47.30 - Sleep apnea, unspecified Plan: Patient?has?an?[employer]?CPAP?machine. Has?had?his?over?11?years.??He?would?like?a?script?fo r?a?new?1?as?his?current?device?is?not?working?consistently. Will?send?script.??He?may?need?a?sleep?study?1st. (7) Hypothyroidism: Code(s): E03.9 - Hypothyroidism, unspecified Plan: Start?levothyroxine (8) Screening for colon cancer: Code(s): Z12.11 - Encounter for screening for malignant neoplasm of colon Plan: Patient?has?had?colonoscopies?and?Cologuard?test?with? He?declines?further?screening. (9) Screening for prostate cancer: Code(s): Z12.5 - Encounter for screening for malignant neoplasm of prostate Plan: PSA?was?within?normal?limits (10) Adult general medical exam: Code(s): Z00.00 - Encounter for general adult medical examination without abnormal findings Plan: 82-year-old?man?presents?for?an?extended?exam Encouraged?healthy?diet?with?active?lifestyle?and?plenty?of?exercise (11) Renal failure: Code(s): N19 - Unspecified kidney failure Orders: Orders AMB Hemoglobin A1c Today Z13.9 - Encounter for screening, unspecified Triiodothyronine T3 Total Today E03.9 - Hypothyroidism, unspecified Comprehensive Met. Panel Today N19 - Unspecified kidney failure Free T4 (Free Thyroxine) Today E03.9 - Hypothyroidism, unspecified Thyroid Stimulating Hormone Today E03.9 - Hypothyroidism, unspecified Complete Blood Count Auto Diff Today D61.818 - Other pancytopenia, Z00.00 - Encounter for general adult medical examination without abnormal findings Medications: New levothyroxine 25 mcg PO DAILY 30 tabs 3RF 30 days Refilled lorazepam [facility]Pat verified. Partial refill upon request. 1 mg PO BID 60 tabs 0RF 30 days E11.9 - Type 2 diabetes mellitus without complications simvastatin 40 mg PO DAILY 90 tabs 2RF 90 days Coding Level of Care Code Est Pt Level 4 (43026) Diagnoses Mild anemia D64.9 Elevated serum creatinine R79.89 Hyperlipidemia E78.5 Diabetes type 2, controlled E11.9 Essential hypertension I10 Sleep apnea G47.30 Hypothyroidism E03.9 Screening for colon cancer Z12.11 Screening for prostate cancer Z12.5 Adult general medical exam Z00.00 Renal failure N19
== END 2023-05-29 14:57 | disposition home or self-care (01) ==
PROVIDERS: PCP Family Medicine; Visit Provider Family Medicine
DX: D64.9 Anemia, unspecified (principal); R79.89 Other specified abnormal findings of blood chemistry; E78.5 Hyperlipidemia, unspecified; E11.9 Type 2 diabetes mellitus without complications; I10 Essential (primary) hypertension; G47.30 Sleep apnea, unspecified; E03.9 Hypothyroidism, unspecified; Z12.11 Encounter for screening for malignant neoplasm of colon; Z12.5 Encounter for screening for malignant neoplasm of prostate; Z00.00 Encounter for general adult medical examination without abnormal findings; N19 Unspecified kidney failure; Z13.9 Encounter for screening, unspecified
CPT/HCPCS: 83036; 99214

== ENCOUNTER 2023-08-22 11:42 | Outpatient (REF) | payer MEDICARE, SELFPAY ==
[2023-08-22 12:26] LABS: MANUAL DIFF FLAG NO
[2023-08-22 12:50] LABS: Basophils Absolute Auto 0.1 X10*3/uL (0.0-0.2); Basophils Percent Auto 1.2 % (0-2); Eosinophils Absolute Auto 0.2 X10*3/uL (0.0-0.4); Eosinophils Percent Auto 3.8 % (0-4); Hematocrit 37.1 % (42.0-52.0); Hemoglobin 12.3 g/dl (14.0-18.0); Imm Gran Abs Auto 0.04 X10*3/uL (0.00-0.03); Imm Gran Pct Auto 0.8 % (0.0-0.4); Lymphocytes Absolute Auto 1.2 X10*3/uL (1.2-4.9); Lymphocytes Percent Auto 23.2 % (20-40); Mean Corpuscular HGB Conc 33.2 g/dl (31.0-36.0); Mean Corpuscular Hemoglobin 29.9 pg (27.0-33.0); Mean Corpuscular Volume 90.3 fL (80.0-98.0); Mean Platelet Volume 9.7 fL (9.4-12.4); Monocytes Absolute Auto 0.5 X10*3/uL (0.1-1.2); Monocytes Percent Auto 9.6 % (2-11); Neutrophils Absolute Auto 3.2 x10*3/uL (2.0-8.3); Neutrophils Percent Auto 61.4 % (45-73); Platelet Count 146 X10*3/uL (160-400); Red Blood Count 4.11 X10*6/uL (4.60-5.80); Red Cell Distribution Width 12.3 % (11.0-16.0); White Blood Count 5.2 X10*3/uL (4.8-10.8)
[2023-08-22 13:37] LABS: Alanine Aminotransferase 19 U/L (0-40); Albumin Level 4.4 g/dL (3.5-5.0); Alkaline Phosphatase 53 U/L (39-117); Anion Gap 12 (12-20); Aspartate Amino Transferase 25 U/L (5-37); Bilirubin Total 0.5 mg/dL (0.0-1.0); Blood Urea Nitrogen 19 mg/dL (9-16); Calcium 8.9 mg/dL (8.4-10.2); Carbon Dioxide 22 mmol/L (22-29); Chloride 111 mmol/L (96-108); Estimated Glomerular Filt Rate 44; Glucose Random 136 mg/dL (60-115); Potassium 4.6 mmol/L (3.3-5.1); Sodium 140 mmol/L (135-145); Total Protein 6.8 g/dL (6.5-8.0)
[2023-08-22 13:57] LABS: Free T4 (Free Thyroxine) 0.76 ng/dL (0.71-1.85); Thyroid Stimulating Hormone 2.65 uIU/mL (0.32-4.0)
[2023-08-24 02:54] LABS: Triiodothyronine T3 Total 76 ng/dL (76-181)
== END 2023-08-22 11:43 | disposition home or self-care (01) ==
LOC: HO.LAB 11:42
PROVIDERS: PCP Family Medicine; Visit Provider Family Medicine
DX: Z00.00 Encounter for general adult medical examination without abnormal findings (principal); E03.9 Hypothyroidism, unspecified; D61.818 Other pancytopenia; N19 Unspecified kidney failure
CPT/HCPCS: 36415; 80053; 84439; 84443; 84480; 85025

== ENCOUNTER 2023-10-06 16:11 | Outpatient (AMB) | payer MEDICARE, SELFPAY ==
--- NOTE | 2023-10-06 16:14 | MHC.PC.OV ---
Vital Signs 10/06/23 16:20 Height 5 ft 11 in Weight 206 lb BMI 28.7 BP 143/67 H Blood Pressure Location Lt brachial Position Sitting Respiration 13 Pulse 88 Pulse Source Pulse Oximeter Temp 97.2 F Temp Source Temporal Artery Scan Pulse Oximetry (%) 96 Oxygen Delivery Method Room Air Intake Visit Reasons: f/u hypothyroidism Intake Note: Patient is here for a hypthyroidism follow up. Patient was rescheduled from August to today. Patient reports he feels very tired on the thyroid medication, patient takes this medicine at lunch time. Patient reports he has a CPAP and needs a new RX for it. Amy says he needs the RX from pulmonology or sleep center. Patient reports he was seen by Yvonne and he does not care for their mannerisms. Technician Terminal And Repeater Required: No Accompanied by: Self / Same As Patient Allergies No Known Allergies [No Known Allergies*] Allergy (Verified 10/06/23 16:23) Tobacco use date assessed: 02/24/23 Fall risk assessment: No Falls in past year Last assessed Fall Risk: 10/06/23 HPI f/u hypothyroidism HPI Details 83 y/o male presents to f/u hypothyroidism. Labs were drawn 08/22/23. Reviewed labs with pt. Ongoing mild anemia. TSH levels improved from 7.07 in April to 2.65 uIU/mL. Free T4 0.76, total T3 76 and within normal range. He is on levothyroxine 25 mvg daily. Blood pressure today 143/67. He is on lisinopril 20mg daily. He notes he is able to check his blood pressure at home and has been in the 130 systolic range. He notes he has been having issues with his CPAP machine as it is 11 years old and needs a new one. Pt has complaints of a rash. A1c today 10/06/23 is 7.2%. He is on metformin 1000mg. He states he could improve his diet. HPI Comments History of Present Illness Details Documentation assistance for Naga Leon MD, was provided by Maxime Pappas, Public Transit Specialist on 10/06/2023 5:07 PM EST. Zuniga, Dr. Leon, have read, observed, and verified documentation. [facility] Surgical History No pertinent past surgical history Family History Brother Prostate cancer Son Muscular dystrophy Social History Household Members: Children Housing: House Alcohol intake: never Patient Tobacco Use Status: Never used Tobacco e-Cigarette/Vaping Use: Never Used Second Hand Smoke Exposure: No service: No Current occupational status: retired Current occupational exposures/hazards: No Cognitive needs: No Hearing needs: Yes (hearing aide) Vision needs: No Questionnaire KOMAL-7 AMB Questionnaire KOMAL-7 Date KOMAL - 7 assessed: 03/14/22 Source: Developed by Drs. Myaco Pelletier, Rachel Hu, Roge Fairchild and colleagues, with an educational sylvain from [employer]. Review of Systems Const Denies chills, Denies fatigue, Denies fever(s), Denies headache(s) and Denies weakness ENT Denies dizziness and Denies headache(s) Card Denies dyspnea Resp Denies cough, Denies dyspnea, Denies wheezing and Denies other (shortness of breath) Musc Denies numbness and Denies tingling Skin/Breast Reports rash Neuro Denies dizziness, Denies headache(s), Denies numbness, Denies tingling and Denies weakness Psych Denies anxiety and Denies depression Endo Denies fatigue Aller/Immun Denies wheezing Physical exam (Primary Care) Vital Signs: Last Vital Signs Temp 97.2 F 10/06/23 16:20 Pulse 88 10/06/23 16:20 Resp 13 10/06/23 16:20 BP 143/67 H 10/06/23 16:20 Pulse Ox 96 10/06/23 16:20 Oxygen Delivery Method Room Air 10/06/23 16:20 BMI result Body Mass Index 28.7 Tobacco/Smoking Status: Tobacco use Status Tobacco use date assessed 02/24/23 10/06/23 16:16 Patient Tobacco Use Status Never used Tobacco 10/06/23 16:16 e-Cigarette/Vaping Use Never Used 10/06/23 16:16 Const General: well developed; No acute distress Nutritional Appearance: well nourished Orientation/consciousness: patient oriented x3 HENMT Head: Yes normocephalic and Yes atraumatic Eyes General: appearance normal, both eyes and all related structures Pupils: Equal, round and reactive pupils present EOM: EOMs intact bilaterally Resp Effort & Inspection: normal respiratory effort Neuro General: patient oriented x3 and gait normal Cranial nerves: Yes Equal, round and reactive pupils present Psych Affect: normal affect Results AMB Hemoglobin A1c AMB Hemoglobin A1c 7.2 % Last Edit by Alisson Ramos MA on 10/06/23 17:18 Assessment and Plan Assessment & Plan (1) Hypothyroidism: Code(s): E03.9 - Hypothyroidism, unspecified Plan: Thyroid?levels?now?in?normal?range?on?levothyroxine?25?mcg?daily Continue?current?medication (2) Essential hypertension: Code(s): I10 - Essential (primary) hypertension Plan: Blood?pressure?is?a?little?elevated?today.??He?has?been?stressed?to?needing?a?new?CPAP?machine?and?also?itchiness?at?bedtime?which?he?was?originally?concerned?was?bedbugs-see?below (3) Mild anemia: Code(s): D64.9 - Anemia, unspecified Plan: Stable?and?likely?secondary?to?chronic?renal?failure We?can?continue?to?monitor (4) Diabetes type 2, controlled: Code(s): E11.9 - Type 2 diabetes mellitus without complications Plan: A1c?climbed?to?7.2%. Continue?metformin?as?prescribed.??Added?glipizide?ER?2.5?mg?once?a?day He?will?work?on?diet?as?well?and?we?may?be?able?to?discontinue?the?glipizide?at?some?point. (5) Sleep apnea: Code(s): G47.30 - Sleep apnea, unspecified Plan: History?of?sleep?apnea?and?has?had?a?CPAP?machine?for?10+?years. Ordered?sleep?study.??He?will?need?an?order?for?new?CPAP?machine (6) Rash: Code(s): R21 - Rash and other nonspecific skin eruption Plan: Mild?itchy?rash?which?appears?as?contact?dermatitis?or?eczema. He?was?told?this?was?bedbugs?and?took?pictures?which?do?not?look?in?any?way?like?bedbug?bites. Can?continue?to?use?triamcinolone?that?he?was?given. Also?advised?humidified?air,?good?hydration?and?a?moisturizer. Call?or?return?to?office?if?not?improving?or?worsens. Orders: Orders RT home sleep study Today G47.30 - Sleep apnea, unspecified AMB Hemoglobin A1c Today E11.9 - Type 2 diabetes mellitus without complications Medications: New glipizide ER 2.5 mg PO DAILY 30 days 30 tabs 2RF Coding Level of Care Code Est Pt Level 4 (86632) Diagnoses Hypothyroidism E03.9 Essential hypertension I10 Mild anemia D64.9 Diabetes type 2, controlled E11.9 Sleep apnea G47.30 Rash R21
[2023-10-06 16:20] VITALS: BP 143/67; PULSE 88; RESP 13; TEMP 36.2; O2SAT 96; BMI 28.7
== END 2023-10-06 18:08 | disposition home or self-care (01) ==
PROVIDERS: PCP Family Medicine; Visit Provider Family Medicine
DX: E03.9 Hypothyroidism, unspecified (principal); I10 Essential (primary) hypertension; D64.9 Anemia, unspecified; E11.9 Type 2 diabetes mellitus without complications; G47.30 Sleep apnea, unspecified; R21 Rash and other nonspecific skin eruption
CPT/HCPCS: 83036; 99214

== ENCOUNTER → 2023-10-16 10:31 | Outpatient (REF) | payer MEDICARE, SELFPAY | LOC: HO.SL 10:31 | PROVIDERS: PCP Family Medicine; Visit Provider Family Medicine | DX: Z13.89 Encounter for screening for other disorder (principal) ==

== ENCOUNTER → 2023-11-08 13:24 | Outpatient (REF) | payer MEDICARE, SELFPAY | LOC: HO.SL 13:24 | PROVIDERS: PCP Family Medicine; Visit Provider Family Medicine | DX: G47.33 Obstructive sleep apnea (adult) (pediatric) (principal) | CPT/HCPCS: 95806 ==

== ENCOUNTER → 2023-11-08 13:53 | Outpatient (BNV) | payer MEDICARE, SELFPAY | PROVIDERS: PCP Family Medicine; Visit Provider Internal Medicine | DX: G47.33 Obstructive sleep apnea (adult) (pediatric) (principal) | CPT/HCPCS: 95806 ==

== ENCOUNTER 2024-01-04 11:31 | Outpatient (REF) | payer MEDICARE, SELFPAY ==
[2024-01-04 12:32] LABS: MANUAL DIFF FLAG NO
[2024-01-04 13:31] LABS: Appearance Urine Clear; Color Urine Yellow; Glucose Urine UA Negative (Negative); Leukocyte Esterase Urine Negative (Negative); Nitrite Urine Negative (Negative); PH 5.5 (5.0-9.0); Urine Blood Negative (Negative); Urine Ketones Negative (Negative); Urine Protein Trace mg/dL (Neg-Trace)
[2024-01-04 13:33] LABS: Basophils Percent Auto 1.2 % (0-2); Eosinophils Absolute Auto 0.2 X10*3/uL (0.0-0.4); Eosinophils Percent Auto 4.6 % (0-4); Hematocrit 35.3 % (42.0-52.0); Hemoglobin 11.4 g/dl (14.0-18.0); Imm Gran Abs Auto 0.02 X10*3/uL (0.00-0.03); Imm Gran Pct Auto 0.6 % (0.0-0.4); Lymphocytes Absolute Auto 0.9 X10*3/uL (1.2-4.9); Lymphocytes Percent Auto 28.6 % (20-40); Mean Corpuscular HGB Conc 32.3 g/dl (31.0-36.0); Mean Corpuscular Hemoglobin 30.4 pg (27.0-33.0); Mean Corpuscular Volume 94.1 fL (80.0-98.0); Mean Platelet Volume 9.8 fL (9.4-12.4); Monocytes Absolute Auto 0.3 X10*3/uL (0.1-1.2); Monocytes Percent Auto 10.2 % (2-11); Neutrophils Absolute Auto 1.8 x10*3/uL (2.0-8.3); Neutrophils Percent Auto 54.8 % (45-73); Platelet Count 114 X10*3/uL (160-400); Red Blood Count 3.75 X10*6/uL (4.60-5.80); Red Cell Distribution Width 12.7 % (11.0-16.0); White Blood Count 3.3 X10*3/uL (4.8-10.8)
[2024-01-04 14:18] LABS: Alanine Aminotransferase 19 U/L (0-40); Albumin Level 4.4 g/dL (3.5-5.0); Alkaline Phosphatase 46 U/L (39-117); Anion Gap 13 (12-20); Aspartate Amino Transferase 23 U/L (5-37); Bilirubin Total 0.5 mg/dL (0.0-1.0); Blood Urea Nitrogen 25 mg/dL (9-16); Calcium 8.8 mg/dL (8.4-10.2); Carbon Dioxide 22 mmol/L (22-29); Chloride 112 mmol/L (96-108); Cholesterol 137 mg/dL (<200); Estimated Glomerular Filt Rate 47; Glucose Random 121 mg/dL (60-115); HDL Cholesterol 39 mg/dL (>40); LDL Cholesterol Calculated 62 mg/dL (<100); Potassium 4.9 mmol/L (3.3-5.1); Sodium 142 mmol/L (135-145); TSH reflex Free T4 1.96 uIU/mL (0.32-4.0); Total Protein 6.7 g/dL (6.5-8.0); Triglycerides 184 mg/dL (<150)
[2024-01-04 14:19] LABS: Creatinine Urine 125.26 mg/dL; Microalbum/Creatinine Ratio Ur 10.3 ug/mg cr (<30)
[2024-01-04 14:20] LABS: Prostate Specific Antigen Scr 1.66 ng/mL (<0.05-4.0)
[2024-01-05 20:48] LABS: LDL Cholesterol Direct 77 mg/dL (<100)
== END 2024-01-04 11:32 | disposition home or self-care (01) ==
LOC: HO.LAB 11:31
PROVIDERS: PCP Family Medicine; Visit Provider Family Medicine
DX: Z00.00 Encounter for general adult medical examination without abnormal findings (principal); R79.89 Other specified abnormal findings of blood chemistry; I10 Essential (primary) hypertension; Z12.5 Encounter for screening for malignant neoplasm of prostate; E78.5 Hyperlipidemia, unspecified
CPT/HCPCS: 36415; 80053; 80061; 81003; 82043; 82570; 83721; 84153; 84443; 85025

== ENCOUNTER 2024-01-15 11:25 | Outpatient (AMB) | payer MEDICARE, SELFPAY ==
[2024-01-15 11:33] VITALS: BP 130/60; PULSE 63; O2SAT 94; BMI 27.9
--- NOTE | 2024-01-15 11:33 | A.OFFPC_ITS ---
Vital Signs 01/15/24 11:33 Height 5 ft 11 in Weight 200 lb BMI 27.9 BP 130/60 Blood Pressure Location Rt brachial Position Sitting Pulse 63 Pulse Source Pulse Oximeter Pulse Oximetry (%) 94 Oxygen Delivery Method Room Air Intake Visit Reasons: f/u labs and DM - see comments Intake Note: Patient is here to follow up on labs and diabetes. Allergies No Known Allergies [No Known Allergies*] Allergy (Verified 01/15/24 11:34) Tobacco use date assessed: 01/15/24 Fall risk assessment: No Falls in past year Last assessed Fall Risk: 01/15/24 Dental Screening Dental Screen Date: 01/15/24 Did you have a dental visit in the last 12 months?: Yes Did you have a dental problem in the last 6 months where you did not have access to dental care?: No Was dental information given to patient?: Patient has dentist HPI f/u labs and DM - see comments HPI Details 83 y/o male presents to f/u labs and travis cline. Labs were drawn 01/04/24. Reviewed labs with pt. Ongoing mild anemia. Creatinine level elevated - improved from 1.53 to 1.45. Triglycerides 184. TC 137. LDL 77. HDL 62. HDL low at 39. He is on simvastatin 40mg daily. Last A1c 10/06/23 7.2%. A1c today 01/15/24 is 5.9%. Blood pressure today 130/60. He is on lisinopril 20mg daily. [facility] Surgical History No pertinent past surgical history Family History Brother Prostate cancer Son Muscular dystrophy Social History Household Members: Children Housing: House Alcohol intake: never Patient Tobacco Use Status: Never used Tobacco e-Cigarette/Vaping Use: Never Used Second Hand Smoke Exposure: No service: No Current occupational status: retired Current occupational exposures/hazards: No Cognitive needs: No Hearing needs: Yes (hearing aide) Vision needs: No Questionnaire KOMAL-7 AMB Questionnaire KOMAL-7 Date KOMAL - 7 assessed: 03/14/22 Source: Developed by Drs. Mayco Pelletier, Rachel Hu, Roge Fairchild and colleagues, with an educational sylvain from [employer]. Review of Systems Const Denies chills, Denies fatigue, Denies fever(s), Denies headache(s) and Denies weakness ENT Denies dizziness and Denies headache(s) Card Denies chest pain, Denies lightheadedness, Denies dyspnea and Denies other (Palpitations) Resp Denies cough, Denies dyspnea, Denies wheezing and Denies other ( shortness of breath) Musc Denies numbness and Denies tingling Neuro Denies dizziness, Denies headache(s), Denies numbness, Denies tingling, Denies paresthesias and Denies weakness Psych Denies anxiety and Denies depression Endo Denies fatigue Aller/Immun Denies wheezing Physical exam (Primary Care) Vital Signs: Last Vital Signs Pulse 63 01/15/24 11:33 BP 130/60 01/15/24 11:33 Pulse Ox 94 01/15/24 11:33 Oxygen Delivery Method Room Air 01/15/24 11:33 BMI result Body Mass Index 27.9 Tobacco/Smoking Status: Tobacco use Status Tobacco use date assessed 01/15/24 01/15/24 11:37 Patient Tobacco Use Status Never used Tobacco 01/15/24 11:34 e-Cigarette/Vaping Use Never Used 01/15/24 11:34 Const General: no acute distress and well developed Nutritional Appearance: well nourished Orientation/consciousness: patient oriented x3 HENMT Head: Yes normocephalic and Yes atraumatic Eyes General: appearance normal, both eyes and all related structures Pupils: Equal, round and reactive pupils present EOM: EOMs intact bilaterally Resp Effort & Inspection: normal respiratory effort Auscultation: clear to auscultation bilaterally Cardio Rate: regular rate Rhythm: regular rhythm Heart sounds: S1 normal heart sound present, S2 normal heart sound present, no gallops, no murmurs and no rubs Neuro General: patient oriented x3 and gait normal Cranial nerves: Yes Equal, round and reactive pupils present Psych Affect: normal affect Results AMB Hemoglobin A1c AMB Hemoglobin A1c 5.9 % Last Edit by Claudia Summers CMA on 01/15/24 12:06 Assessment and Plan Assessment & Plan (1) Diabetes type 2, controlled: Code(s): E11.9 - Type 2 diabetes mellitus without complications Plan: A1c?now?5.9%?with?addition?of?glipizide. Continued?this?and?his?metformin?today A1c?goal?is?less?than?7.0% (2) Essential hypertension: Code(s): I10 - Essential (primary) hypertension Plan: Blood?pressure?is?controlled.??Goal?is?less?than?140/90 Continue?current?medications (3) Hyperlipidemia: Code(s): E78.5 - Hyperlipidemia, unspecified Plan: LDL?cholesterol?is?well?controlled. HDL?is?slightly?low?and?encouraged?increasing?activity?and?exercise (4) Mild anemia: Code(s): D64.9 - Anemia, unspecified Plan: Ongoing?pancytopenia?with?mild?worsening?of?his?anemia Is?Hematology-Oncology?specialist?had?recommended?a?follow-up?in?2?months?but?priyank kaur?has?not?followed?up?yet Asked?him?to?call?[facility]?for?a?follow-up?appointment. (5) Elevated serum creatinine: Code(s): R79.89 - Other specified abnormal findings of blood chemistry Plan: Creatinine?is?back?at?baseline?of?about?1.45 Will?continue?to?monitor Avoid?increasing?metformin. (6) Low HDL (under 40): Code(s): E78.6 - Lipoprotein deficiency Plan: Encouraged?exercise (7) Hypothyroidism: Code(s): E03.9 - Hypothyroidism, unspecified Plan: TSH?remains?well?controlled Plan Patient?no adilene?he?had?a?bout?of?nausea?vomiting?and?diarrhea?which?had?sudden?onset?and?was ?essentially?resolved?in?about?24?hours. His?son?had?similar?rapid?onset?symptoms Likely?a?bout?of?food?poisoning This?has?resolved Orders: Orders Comprehensive [place]. Panel Fast Today Z00.00 - Encounter for general adult medical examination without abnormal findings Hemoglobin A1c Today R73.01 - Impaired fasting glucose TSH reflex Free T4 Today Z00.00 - Encounter for general adult medical examination without abnormal findings AMB Hemoglobin A1c Today Z13.9 - Encounter for screening, unspecified Coding Level of Care Code Est Pt Level 4 (78364) Diagnoses Diabetes type 2, controlled E11.9 Essential hypertension I10 Hyperlipidemia E78.5 Mild anemia D64.9 Elevated serum creatinine R79.89 Low HDL (under 40) E78.6 Hypothyroidism E03.9
== END 2024-01-15 12:24 | disposition home or self-care (01) ==
PROVIDERS: PCP Family Medicine; Visit Provider Family Medicine
DX: E11.69 Type 2 diabetes mellitus with other specified complication (principal); I10 Essential (primary) hypertension; E78.5 Hyperlipidemia, unspecified; D64.9 Anemia, unspecified; R79.89 Other specified abnormal findings of blood chemistry; E78.6 Lipoprotein deficiency; E03.9 Hypothyroidism, unspecified
CPT/HCPCS: 83036; 99214

== ENCOUNTER 2024-05-06 11:27 | Outpatient (REF) | payer MEDICARE, SELFPAY ==
[2024-05-06 12:37] LABS: Estimated Average Glucose 117 mg/dL; Hemoglobin A1c % 5.7 % (<6.0)
[2024-05-06 13:06] LABS: Alanine Aminotransferase 18 U/L (0-40); Albumin Level 4.3 g/dL (3.5-5.0); Alkaline Phosphatase 53 U/L (39-117); Anion Gap 13 (12-20); Aspartate Amino Transferase 22 U/L (5-37); Bilirubin Total 0.4 mg/dL (0.0-1.0); Blood Urea Nitrogen 28 mg/dL (9-16); Calcium 8.6 mg/dL (8.4-10.2); Carbon Dioxide 19 mmol/L (22-29); Chloride 114 mmol/L (96-108); Estimated Glomerular Filt Rate 38; Glucose Fasting 112 mg/dL (60-99); Potassium 4.9 mmol/L (3.3-5.1); Sodium 141 mmol/L (135-145); Total Protein 6.5 g/dL (6.5-8.0)
[2024-05-06 13:22] LABS: TSH reflex Free T4 3.18 uIU/mL (0.32-4.0)
== END 2024-05-06 11:28 | disposition home or self-care (01) ==
LOC: HO.LAB 11:27
PROVIDERS: PCP Family Medicine; Visit Provider Family Medicine
DX: Z00.00 Encounter for general adult medical examination without abnormal findings (principal); R73.01 Impaired fasting glucose
CPT/HCPCS: 36415; 80053; 83036; 84443

== ENCOUNTER 2024-05-17 14:18 | Outpatient (AMB) | payer MEDICARE, SELFPAY ==
--- NOTE | 2024-05-17 14:36 | A.OFFPC_ITS ---
Vital Signs 05/17/24 14:37 Height 5 ft 11 in Weight 211 lb 8 oz BMI 29.5 BP 120/50 L Blood Pressure Location Rt brachial Position Sitting Respiration 14 Pulse 82 Pulse Source Pulse Oximeter Temp 96.9 F Temp Source Oral Pulse Oximetry (%) 96 Oxygen Delivery Method Room Air Intake Visit Reasons: f/u diabetes Intake Note: f/u dm Allergies No Known Allergies [No Known Allergies*] Allergy (Verified 05/17/24 14:36) Tobacco use date assessed: 01/15/24 Dental Screening Dental Screen Date: 01/15/24 HPI f/u diabetes 2 HPI Details 83 y/o male presents to f/u hypertension , diabetes. Last A1c 05/06/24 5.7%. He is on metformin 1000mg, glipizide 2.5mg daily. Labs drawn 05/06/24. Reviewed labs with pt. Creatinine level improved from 1.87 to 1.72. Blood pressure today 120/60, 82p. He is on lisinopril 20mg daily. HPI Comments History of Present Illness Details Documentation assistance for Naga Leon MD, was provided by Maxime Pappas, Environmental Planning Engineer on 05/17/2024 at 2:46 PM EST. I, Dr. Leon, have read, observed, and verified documentation. REPLACED BY [facility] Surgical History No pertinent past surgical history Family History Brother Prostate cancer Son Muscular dystrophy Social History Household Members: Children Housing: House Alcohol intake: never Patient Tobacco Use Status: Never used Tobacco e-Cigarette/Vaping Use: Never Used Second Hand Smoke Exposure: No service: No Current occupational status: retired Current occupational exposures/hazards: No Cognitive needs: No Hearing needs: Yes (hearing aide) Vision needs: No Questionnaire AUDIT C Alcohol Use Questionnaire (AUDIT-C) 2. How many drinks containing alcohol do you have on a typical day when you are drinking?: 1 or 2 3. How often do you have six or more drinks on one occasion?: Never Total Score: 0 KOMAL-7 AMB Questionnaire KOMAL-7 Date KOMAL - 7 assessed: 03/14/22 Source: Developed by Drs. Mayco Pelletier, Rachel Hu, Roge Fairchild and colleagues, with an educational sylvain from [employer]. Review of Systems Const Denies chills, Denies fatigue, Denies fever(s), Denies headache(s) and Denies weakness ENT Denies dizziness and Denies headache(s) Card Denies dyspnea Resp Denies cough, Denies dyspnea, Denies wheezing and Denies other (shortness of breath) Musc Denies numbness and Denies tingling Neuro Denies dizziness, Denies headache(s), Denies numbness, Denies tingling and Denies weakness Psych Denies anxiety and Denies depression Endo Denies fatigue Aller/Immun Denies wheezing Physical exam (Primary Care) Vital Signs: Last Vital Signs Temp 96.9 F 05/17/24 14:37 Pulse 82 05/17/24 14:37 Resp 14 05/17/24 14:37 BP 110/50 L 05/17/24 14:37 Pulse Ox 96 05/17/24 14:37 Oxygen Delivery Method Room Air 05/17/24 14:37 BMI result Body Mass Index 29.5 Tobacco/Smoking Status: Tobacco use Status Tobacco use date assessed 01/15/24 05/17/24 14:41 Patient Tobacco Use Status Never used Tobacco 05/17/24 14:41 e-Cigarette/Vaping Use Never Used 05/17/24 14:41 Const General: well developed; No acute distress Nutritional Appearance: well nourished Orientation/consciousness: patient oriented x3 HENMT Head: Yes normocephalic and Yes atraumatic Eyes General: appearance normal, both eyes and all related structures Pupils: Equal, round and reactive pupils present EOM: EOMs intact bilaterally Resp Effort & Inspection: normal respiratory effort Neuro General: patient oriented x3 and gait normal Cranial nerves: Yes Equal, round and reactive pupils present Psych Affect: normal affect Coding Level of Care Code Est Pt Level 3 (94830) Diagnoses Essential hypertension I10 Diabetes type 2, controlled E11.9 Renal failure N19 Assessment & Plan Assessment & Plan (1) Essential hypertension: Code(s): I10 - Essential (primary) hypertension Category: Medical Plan: Blood?pressure?is?controlled.??Goal?is?less?than?140/90 Continue?current?medications (2) Diabetes type 2, controlled: Code(s): E11.9 - Type 2 diabetes mellitus without complications Category: Medical Plan: A1c?in April?was?5.7%.??Good?control.??Goal?is?less?than?7.0% Continue?current?medications (3) Renal failure: Code(s): N19 - Unspecified kidney failure Category: Medical Plan: Creatinine?level?1.7?to?in?April.??This?is?improved?from?prior Likely?at?baseline Continue?good?blood?pressure?and?blood?sugar?control. Avoid?NSAIDs Will?continue?to?monitor Medications: Changed From levothyroxine 25 mcg PO DAILY 30 days 30 tabs 3RF To levothyroxine 25 mcg PO DAILY 90 days 90 tabs 4RF
[2024-05-17 14:37] VITALS: BP 120/50; PULSE 82; RESP 14; TEMP 36.1; O2SAT 96; BMI 29.5
== END 2024-05-17 15:09 | disposition home or self-care (01) ==
PROVIDERS: PCP Family Medicine; Visit Provider Family Medicine
DX: I10 Essential (primary) hypertension (principal); E11.9 Type 2 diabetes mellitus without complications; N19 Unspecified kidney failure

== ENCOUNTER → 2024-05-17 14:18 | Outpatient (BNVA) | payer MEDICARE, SELFPAY | PROVIDERS: PCP Family Medicine; Visit Provider Family Medicine | DX: I10 Essential (primary) hypertension (principal); E11.9 Type 2 diabetes mellitus without complications; N19 Unspecified kidney failure | CPT/HCPCS: 99212 ==

== ENCOUNTER 2024-09-30 10:44 | Outpatient (AMB) | payer MEDICARE, SELFPAY ==
--- NOTE | 2024-09-30 10:55 | A.OFFPC_ITS ---
Vital Signs 09/30/24 10:56 Height 5 ft 11 in Weight 215 lb BMI 30.0 BP 120/70 Blood Pressure Location Lt brachial Position Sitting Respiration 14 Pulse 91 Pulse Source Pulse Oximeter Temp 97.9 F Temp Source Oral Pulse Oximetry (%) 94 Oxygen Delivery Method Room Air Intake Visit Reasons: 3-4 mo f/u diabetes, hypertension - see comment Intake Note: follow up for dm and htn Allergies No Known Allergies [No Known Allergies*] Allergy (Verified 09/30/24 10:55) Medication List - Last Reviewed 09/30/24 by Fercho Capps CMA albuterol sulfate 90 mcg/actuation (ProAir HFA) 2 puffs inhalation Q4-6H PRN 30 days albuterol sulfate 90 mcg/actuation (Ventolin HFA) 2 puffs inhalation Q4-6H PRN APAP Machine/Device CPAP/APAP 6-20 CM H2O, Daily, As directed. 999 days. Kit with tubing, mask & supplies. ferrous sulfate (Feosol) 325 mg PO DAILY glipizide ER 2.5 mg PO DAILY 30 days lisinopril 20 mg PO DAILY 90 days lorazepam 1 mg PO BID 30 days metformin 1,000 mg PO BID miscellaneous medical supply [employer] CPAP/APAP machine, [id number], Daily As directed, 999 days omeprazole 20 mg PO DAILY 90 days sertraline 100 mg PO DAILY simvastatin 40 mg PO DAILY 90 days Synthroid (levothyroxine) 25 mcg PO DAILY 90 days NS Tobacco use date assessed: 01/15/24 Dental Screening Dental Screen Date: 01/15/24 HPI 3-4 mo f/u diabetes, hypertension - see comment HPI Details 84 y/o male presents to f/u diabetes, hy pertension. Last A1c 05/06/24 5.7%. A1c today climbed to 6.2%. [facility]. Has a follow up with them in about 5 months. BP today 120/70, 91p. Pt's creatinine level continues to be consistently elevated. HPI Comments History of Present Illness Details Documentation assistance for Naga Leon MD, was provided by Maxime Pappas,? Truant Officer on 09/30/2024 at 11:05 AM EST. I, Dr. Leon, have read, observed, and verified documentation. ?? PFS Surgical History No pertinent past surgical history Family History Brother Prostate cancer Son Muscular dystrophy Social History Household Members: Children Housing: House Alcohol intake: never Patient Tobacco Use Status: Never used Tobacco e-Cigarette/Vaping Use: Never Used Second Hand Smoke Exposure: No service: No Current occupational status: retired Current occupational exposures/hazards: No Cognitive needs: No Hearing needs: Yes (hearing aide) Vision needs: No Questionnaire PHQ-9 Over the last 2 weeks, how often have you been bothered by any of the following problems? 1. Little interest or pleasure in doing things: several days 2. Feeling down, depressed, or hopeless: several days 3. Trouble falling or staying asleep, or sleeping too much: several days 4. Feeling tired or having little energy: several days 5. Poor appetite or overeating: several days 6. Feeling bad about yourself - or that you are a failure or have let yourself or your family down: not at all 7. Trouble concentrating on things, such as reading the newspaper or watching television: several days 8. Moving or speaking so slowly that other people could have noticed. Or the opposite - being so fidgety or restless that you have been moving around a lot more than usual: not at all 9. Thoughts that you would be better off or of hurting yourself in some way: not at all Total score: 6 Source: Developed by Drs. Mayco Pelletier, Rachel Hu, Roge Fairchild and colleagues, with an educational sylvain from [employer]. Thrive Questionnaire Date Thrive assessed: 09/23/24 I am a: Patient What is your living situation today?: I have a steady place to live Within the past 12 months, did the food you bought not last and you didn't have the money to get more?: Never true Within the past 12 months, did you worry whether your food would run out before you got money to buy more?: Never true Do you have trouble paying for medicines?: No Do you have trouble getting transportation to medical appointments?: No Do you have trouble paying your heating and electricity bill?: No Do you have trouble taking care of your child, family member or friend?: No Do you have trouble with day-to-day activities such as bathing, preparing meals, shopping, managing finances, etc.?: No Are you currently unemployed and looking for a job?: No Are you interested in more education?: No Please select the resources that you would like help with: None Currently or been in a relationship where the following occur: No concerns reported THRIVE Score: 0 AUDIT C Alcohol Use Questionnaire (AUDIT-C) 1. How often do you have a drink containing alcohol?: Monthly or less 2. How many drinks containing alcohol do you have on a typical day when you are drinking?: 1 or 2 3. How often do you have six or more drinks on one occasion?: Never Total Score: 1 KOMAL-7 AMB Questionnaire KOMAL-7 Date KOMAL - 7 assessed: 03/14/22 Feeling nervous, anxious, or on edge: 1 = Several days Not being able to stop or control worryin = Several days Worrying too much about different things: 1 = Several days Trouble relaxin = Not at all Being so restless that it is hard to sit still: 0 = Not at all Becoming easily annoyed or irritable: 1 = Several days Feeling afraid as if something awful might happen: 0 = Not at all Total KOMAL-7 score (0-4 normal; 5-9 mild; 10-14 moderate; 15-21 severe): 4 Source: Developed by Drs. Mayco Pelletier, Rachel Hu, Roge Fairchild and colleagues, with an educational sylvain from [employer]. Review of Systems Const Denies chills, Denies fatigue, Denies fever(s), Denies headache(s) and Denies weakness ENT Denies dizziness and Denies headache(s) Card Denies dyspnea Resp Denies cough, Denies dyspnea, Denies wheezing and Denies other (shortness of breath) Musc Denies numbness and Denies tingling Neuro Denies dizziness, Denies headache(s), Denies numbness, Denies tingling and Denies weakness Psych Denies anxiety and Denies depression Endo Denies fatigue Aller/Immun Denies wheezing Physical exam (Primary Care) Vital Signs: Last Vital Signs Temp 97.9 F 09/30/24 10:56 Pulse 91 09/30/24 10:56 Resp 14 09/30/24 10:56 BP 120/70 09/30/24 10:56 Pulse Ox 94 09/30/24 10:56 Oxygen Delivery Method Room Air 09/30/24 10:56 BMI result Body Mass Index 30.0 Tobacco/Smoking Status: Tobacco use Status Tobacco use date assessed 01/15/24 09/30/24 11:00 Patient Tobacco Use Status Never used Tobacco 09/30/24 11:00 e-Cigarette/Vaping Use Never Used 09/30/24 11:00 PHQ-9: PHQ-9 Score PHQ-9: Total score 6 09/30/24 11:00 Thrive Assessment: Date of Thrive Assessment Date Thrive assessed 09/23/24 09/30/24 11:00 Currently or been in a relationship where the following occur: No concerns reported Const General: well developed; No acute distress Nutritional Appearance: well nourished Orientation/consciousness: patient oriented x3 HENMT Head: Yes normocephalic and Yes atraumatic Eyes General: appearance normal, both eyes and all related structures Pupils: Equal, round and reactive pupils present EOM: EOMs intact bilaterally Resp Effort & Inspection: normal respiratory effort Auscultation: clear to auscultation bilaterally Cardio Rate: regular rate Rhythm: regular rhythm Heart sounds: S1 normal heart sound present, S2 normal heart sound present, no gallops, no murmurs and no rubs Neuro General: patient oriented x3 and gait normal Cranial nerves: Yes Equal, round and reactive pupils present Psych Affect: normal affect Coding Level of Care Code Est Pt Level 5 (84844) Diagnoses Essential hypertension I10 Diabetes type 2, controlled E11.9 Pancytopenia D61.818 Renal failure N19 Severe sleep apnea G47.30 Assessment & Plan Assessment & Plan (1) Essential hypertension: Code(s): I10 - Essential (primary) hypertension Category: Medical Plan: Blood?pressure?is?controlled.??Goal?is?less?than?140/90 Continue?current?medication (2) Diabetes type 2, controlled: Code(s): E11.9 - Type 2 diabetes mellitus without complications Category: Medical Plan: A1c?climbed?from?5.7%?to?6.2%. Goal?is?less?than?7.0% However,?patient's?creatinine?level?continues?to?be?elevated?consistently. We?discussed?that?we?should?be?trying?to?decrease?or?move?away?from?using?met formin. He?is?currently?taking?1000?mg?b.i.d.. Will?have?him?decrease?his?evening?dose?by?500?mg.??He?will?take?1000?mg?at?noon ?and?500?mg?at?evening. We?discussed?that?we?will?continue?to?decrease?th is?and?watch?his?creatinine?levels. To?offset?decreasing?metformin,?we?will?increase?his?glipizide?ER?2.5 to 5?mg?daily Will?also?add?Farxiga?for?better?blood?sugar?control?and?for?renal?protection. 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 As?above?we?are?decreasing?metformin?and?continue?to?watch?his?renal?function. We?discussed?that?if we?are?unable?to?make?improvements,?despite?decreasing/stopping?metformin?that?w ill?make?a?referral?to?Nephrology. (5) Severe sleep apnea: Code(s): G47.30 - Sleep apnea, unspecified Category: Medical Plan: Continue?CPAP Medications: New dapagliflozin propanediol (Farxiga) 5 mg PO DAILY 90 days 90 tabs 3RF Changed From glipizide ER 2.5 mg PO DAILY 30 days 30 tabs 2RF To glipizide ER 5 mg PO DAILY 30 days 30 tabs 2RF From metformin 1,000 mg PO BID 180 tabs 3RF E11.9 - Type 2 diabetes mellitus without complications To metformin 1000mg at noon and 500mg in evening orally 2 times a day; 90 days 135 tabs 3RF E11.9 - Type 2 diabetes mellitus without complications Refilled lorazepam [facility] verified. Partial refill upon request. 1 mg PO BID 30 days 60 tabs 0RF E11.9 - Type 2 diabetes mellitus without complications
[2024-09-30 10:56] VITALS: BP 120/70; PULSE 91; RESP 14; TEMP 36.6; O2SAT 94
== END 2024-09-30 11:20 | disposition home or self-care (01) ==
PROVIDERS: PCP Family Medicine; Visit Provider Family Medicine
DX: I10 Essential (primary) hypertension (principal); E11.9 Type 2 diabetes mellitus without complications; D61.818 Other pancytopenia; N19 Unspecified kidney failure; G47.30 Sleep apnea, unspecified

== ENCOUNTER → 2024-09-30 10:44 | Outpatient (BNVA) | payer MEDICARE, SELFPAY | PROVIDERS: PCP Family Medicine; Visit Provider Family Medicine | DX: I10 Essential (primary) hypertension (principal); E11.9 Type 2 diabetes mellitus without complications; D61.818 Other pancytopenia; N19 Unspecified kidney failure; G47.30 Sleep apnea, unspecified | CPT/HCPCS: 83036; 99212 ==

== ENCOUNTER 2025-01-03 14:32 | Outpatient (AMB) | payer MEDICARE, SELFPAY ==
--- NOTE | 2025-01-03 14:47 | AM.OFFWIN_ITS ---
Intake Vital Signs 01/03/25 14:49 Weight 210 lb BP 110/64 Blood Pressure Location Lt brachial Position Sitting Pulse 77 Pulse Source Pulse Oximeter Pulse Oximetry (%) 96 Oxygen Delivery Method Room Air Intake Visit Reasons: EP pain the back of rt ear Intake Note: Patient here for right ear pain that has been present since monday. Patient Tobacco Use Status: Never used Tobacco Allergies No Known Allergies [No Known Allergies*] Allergy (Verified 01/03/25 15:13) Do you need a note to return to daycare/school/sports/work: No HPI HPI Comments History of Present Illness Details 84 y/o Male patient who presents to the walk in clinic with c/o Left Ear pain since Monday. He has been using Acetaminophen 500 mg BID with minimal relief. [facility] Medical History (Updated 01/03/25 @ 16:02 by Divine Hammonds NP) Otogenic otalgia of right ear Cerumen impaction Surgical History No pertinent past surgical history Family History Brother Prostate cancer Son Muscular dystrophy Social History Household Members: Children Housing: House Alcohol intake: never Patient Tobacco Use Status: Never used Tobacco e-Cigarette/Vaping Use: Never Used Second Hand Smoke Exposure: No service: No Current occupational status: retired Current occupational exposures/hazards: No Cognitive needs: No Hearing needs: Yes (hearing aide) Vision needs: No Review of Systems Const All systems reviewed & are unremarkable except as noted in HPI and below Physical Exam Vital Signs: Last Vital Signs Pulse 77 01/03/25 14:49 BP 110/64 01/03/25 14:49 Pulse Ox 96 01/03/25 14:49 Oxygen Delivery Method Room Air 01/03/25 14:49 Const General: no acute distress Nutritional Appearance: overweight Orientation/consciousness: patient oriented x3 HEENT Head: Yes normocephalic Ears: external ears normal and TM abnormal obstructed by cerumen bilateral Neuro General: patient oriented x3 Assessment & Plan Assessment & Plan (1) Cerumen impaction: Code(s): H61.20 - Impacted cerumen, unspecified ear Qualifiers: Laterality: bilateral Qualified Code(s): H61.23 - Impacted cerumen, bilateral Plan: Ordered Cerumen Irrigation, Patient tolerated the procedure well. Right TM Intact, Bukging and small amount of fluid with Redness Left TM intact and clear. Will order Abx Otic drops for few days. Acetaminophen for pain. (2) Otogenic otalgia of right ear: Code(s): H92.01 - Otalgia, right ear Plan: Ordered Cerumen Irrigation, Patient tolerated the procedure well. Right TM Intact, Bukging and small amount of fluid with Redness Left TM intact and clear. Will order Abx Otic drops for few days. Acetaminophen for pain. Medications: New ciprofloxacin-dexamethasone 0.3-0.1 % 4 drps otic (ear) right BID 7 days 7.5 mL 0RF H92.01 - Otalgia, right ear Coding Level of Care Code Est Pt Level 4 (52712) Diagnoses Bilateral impacted cerumen H61.23 Laterality: bilateral Otogenic otalgia of right ear H92.01 Time Spent (min) 20
[2025-01-03 14:49] VITALS: BP 110/64; PULSE 77; O2SAT 96
== END 2025-01-03 15:57 | disposition home or self-care (01) ==
PROVIDERS: PCP Family Medicine; Visit Provider Nurse Practitioner Family
DX: H61.23 Impacted cerumen, bilateral (principal); H92.01 Otalgia, right ear

== ENCOUNTER → 2025-01-03 14:32 | Outpatient (BNVA) | payer MEDICARE, SELFPAY | PROVIDERS: PCP Family Medicine; Visit Provider Nurse Practitioner Family | DX: H51.23 Internuclear ophthalmoplegia, bilateral (principal); H92.01 Otalgia, right ear | CPT/HCPCS: 99212 ==

== ENCOUNTER → 2025-01-20 11:29 | Outpatient (BNVA) | payer MEDICARE, SELFPAY | PROVIDERS: PCP Family Medicine; Visit Provider Family Medicine | DX: Z13.89 Encounter for screening for other disorder (principal) ==

== ENCOUNTER 2025-01-23 13:42 | Outpatient (AMB) | payer MEDICARE, SELFPAY ==
--- NOTE | 2025-01-23 13:59 | A.OFFPC_ITS ---
Vital Signs 01/23/25 14:05 Height 5 ft 11 in Weight 210 lb BMI 29.3 BP 120/60 Blood Pressure Location Rt brachial Position Sitting Respiration 14 Pulse 77 Pulse Source Pulse Oximeter Temp 98.0 F Temp Source Oral Pulse Oximetry (%) 96 Oxygen Delivery Method Room Air Intake Visit Reasons: f/u diabetes, hypertension Intake Note: patient is scheduled to follow up for dm and htn Bunghole Borer Required: No Allergies No Known Allergies [No Known Allergies*] Allergy (Verified 01/23/25 14:00) Medication List - Last Reconciled 01/23/25 by Naga Leon MD albuterol sulfate 90 mcg/actuation (Ventolin HFA) 2 puffs inhalation Q4-6H PRN APAP Machine/Device CPAP/APAP 6-20 CM H2O, Daily, As directed. 999 days. Kit with tubing, mask & supplies. dapagliflozin propanediol (Farxiga) 5 mg PO DAILY 90 days glipizide ER 5 mg PO DAILY 90 days lisinopril 20 mg PO DAILY 90 days lorazepam 1 mg PO BID 30 days metformin 1000mg at noon and 500mg in evening orally 2 times a day; 90 days miscellaneous medical supply [employer] CPAP/APAP machine, [id number], Daily As directed, 999 days omeprazole 20 mg PO DAILY 90 days sertraline 100 mg PO DAILY simvastatin 40 mg PO DAILY 90 days Synthroid (levothyroxine) 25 mcg PO DAILY 90 days NS Tobacco use date assessed: 01/15/24 Dental Screening Dental Screen Date: 01/15/24 HPI f/u diabetes, hypertension HPI Details 84 y/o male presents to f/u diabetes, hy pertension, CRF. Had decreased metformin as his creatnine continued to be consistently elevated. Also added Farxiga for better blood sugar control and for renal protection. No recent labs to review. Last A1c 09/30/24 6.2%. A1c today 5.8%. Blood pressure today 120/60, 77p. He is on lisinopril 20mg daily. [facility] Medical History (Updated 01/23/25 @ 14:03 by Naga Leon MD) Otogenic otalgia of right ear Cerumen impaction Surgical History No pertinent past surgical history Family History Brother Prostate cancer Son Muscular dystrophy Social History Household Members: Children Housing: House Alcohol intake: never Patient Tobacco Use Status: Never used Tobacco e-Cigarette/Vaping Use: Never Used Second Hand Smoke Exposure: No service: No Current occupational status: retired Current occupational exposures/hazards: No Cognitive needs: No Hearing needs: Yes (hearing aide) Vision needs: No Questionnaire Thrive Questionnaire Date Thrive assessed: 09/23/24 I am a: Patient What is your living situation today?: I have a steady place to live Within the past 12 months, did the food you bought not last and you didn't have the money to get more?: Never true Within the past 12 months, did you worry whether your food would run out before you got money to buy more?: Never true Do you have trouble paying for medicines?: No Do you have trouble getting transportation to medical appointments?: No Do you have trouble paying your heating and electricity bill?: No Do you have trouble taking care of your child, family member or friend?: No Do you have trouble with day-to-day activities such as bathing, preparing meals, shopping, managing finances, etc.?: No Are you currently unemployed and looking for a job?: No Are you interested in more education?: No Please select the resources that you would like help with: None Currently or been in a relationship where the following occur: No concerns reported THRIVE Score: 0 KOMAL-7 AMB Questionnaire KOMAL-7 Date KOMAL - 7 assessed: 03/14/22 Source: Developed by Drs. Mayco Pelletier, Rachel Hu, Roge Fairchild and colleagues, with an educational sylvain from [employer]. Review of Systems Const Denies chills, Denies fatigue, Denies fever(s), Denies headache(s) and Denies weakness ENT Denies dizziness and Denies headache(s) Card Denies dyspnea Resp Denies cough, Denies dyspnea, Denies wheezing and Denies other (shortness of breath) Musc Denies numbness and Denies tingling Neuro Denies dizziness, Denies headache(s), Denies numbness, Denies tingling and Denies weakness Psych Denies anxiety and Denies depression Endo Denies fatigue Aller/Immun Denies wheezing Physical exam (Primary Care) Vital Signs: Last Vital Signs Temp 98.0 F 01/23/25 14:05 Pulse 77 01/23/25 14:05 Resp 14 01/23/25 14:05 BP 120/60 01/23/25 14:05 Pulse Ox 96 01/23/25 14:05 Oxygen Delivery Method Room Air 01/23/25 14:05 BMI result Body Mass Index 29.3 Tobacco/Smoking Status: Tobacco use Status Tobacco use date assessed 01/15/24 01/23/25 14:03 Patient Tobacco Use Status Never used Tobacco 01/23/25 14:03 e-Cigarette/Vaping Use Never Used 01/23/25 14:03 Thrive Assessment: Date of Thrive Assessment Date Thrive assessed 09/23/24 01/23/25 14:03 Currently or been in a relationship where the following occur: No concerns reported Const General: well developed; No acute distress Nutritional Appearance: well nourished Orientation/consciousness: patient oriented x3 [facility] Head: Yes normocephalic and Yes atraumatic Eyes General: appearance normal, both eyes and all related structures Pupils: Equal, round and reactive pupils present EOM: EOMs intact bilaterally Resp Effort & Inspection: normal respiratory effort Auscultation: clear to auscultation bilaterally Cardio Rate: regular rate Rhythm: regular rhythm Heart sounds: S1 normal heart sound present, S2 normal heart sound present, no gallops, no murmurs and no rubs Neuro General: patient oriented x3 and gait normal Cranial nerves: Yes Equal, round and reactive pupils present Psych Affect: normal affect Coding Level of Care Code Est Pt Level 4 (74619) Diagnoses Diabetes type 2, controlled E11.9 Essential hypertension I10 Renal failure N19 Assessment & Plan Assessment & Plan (1) Diabetes type 2, controlled: Code(s): E11.9 - Type 2 diabetes mellitus without complications Category: Medical Plan: A1c?has?improved?again?to?5.8%?after?adding?Farxiga?and?increasing?his?glipizide ?while?decreasing?metformin Will?continue?to?decrease?metformin - he?will?take?500?mg?b.i.d. Increasing?Farxiga?from?5?mg?daily?to?10?mg?daily. Continue?glipizide?ER 5?mg?daily Follow-up?in?3?months (2) Essential hypertension: Code(s): I10 - Essential (primary) hypertension Category: Medical Plan: Blood?pressure?is?well?controlled.??Goal?is?less?than?140/90 Continue?current?medications (3) Renal failure: Code(s): N19 - Unspecified kidney failure Category: Medical Plan: We?have?been?weaning?down?metformin?due?to?elevated?and?rising?creatinine?level. He?will?get?his?labs?drawn?today If?creatinine?level?is?the?same?or?higher,?will?refer?to?Nephrology Decreasing?metformin?further?today.??See?above Orders: Orders UA CC w/rflx Micro + Cult Today Z00.00 - Encounter for general adult medical examination without abnormal findings Basic Metabolic Panel Today N18.9 - Chronic kidney disease, unspecified Microalbumin, Random (w Creat) Today I10 - Essential (primary) hypertension Medications: Changed From metformin 1000mg at noon and 500mg in evening orally 2 times a day; 90 days 135 tabs 3RF E11.9 - Type 2 diabetes mellitus without complications To metformin 500 mg (1/2 x 1,000 mg) PO BID 90 days 90 tabs 3RF E11.9 - Type 2 diabetes mellitus without complications From dapagliflozin propanediol (Farxiga) 5 mg PO DAILY 90 days 90 tabs 3RF To dapagliflozin propanediol 10 mg PO DAILY 90 tabs 3RF 90 days From metformin 500 mg (1/2 x 1,000 mg) PO BID 90 days 90 tabs 3RF E11.9 - Type 2 diabetes mellitus without complications To metformin 500 mg PO BID 180 tabs 3RF 90 days E11.9 - Type 2 diabetes mellitus without complications
[2025-01-23 14:05] VITALS: BP 120/60; PULSE 77; RESP 14; TEMP 36.7; O2SAT 96; BMI 29.3
== END 2025-01-23 14:32 | disposition home or self-care (01) ==
LOC: HO.HMCFM 13:43
PROVIDERS: PCP Family Medicine; Visit Provider Family Medicine
DX: E11.9 Type 2 diabetes mellitus without complications (principal); I10 Essential (primary) hypertension; N19 Unspecified kidney failure

== ENCOUNTER → 2025-01-23 13:42 | Outpatient (BNVA) | payer MEDICARE, SELFPAY | PROVIDERS: PCP Family Medicine; Visit Provider Family Medicine | DX: E11.22 Type 2 diabetes mellitus with diabetic chronic kidney disease (principal); I12.9 Hypertensive chronic kidney disease with stage 1 through stage 4 chronic kidney disease, or unspecified chronic kidney disease; N18.9 Chronic kidney disease, unspecified | CPT/HCPCS: 83036; 99212 ==

== ENCOUNTER 2025-01-24 10:51 | Outpatient (REF) | payer MEDICARE, SELFPAY ==
[2025-01-24 12:53] LABS: Anion Gap 13 (12-20); Blood Urea Nitrogen 37 mg/dL (9-16); Calcium 8.9 mg/dL (8.4-10.2); Carbon Dioxide 20 mmol/L (22-29); Chloride 111 mmol/L (96-108); Estimated Glomerular Filt Rate 35; Glucose Random 75 mg/dL (60-115); Potassium 4.7 mmol/L (3.3-5.1); Sodium 139 mmol/L (135-145)
[2025-01-24 13:25] LABS: Appearance Urine Clear; Color Urine Yellow; Glucose Urine UA 250 mg/dL (Negative); Leukocyte Esterase Urine Negative (Negative); Nitrite Urine Negative (Negative); PH 5.5 (5.0-9.0); UMIC TRIGGER UACC YES; Urine Blood Negative (Negative); Urine Ketones Negative (Negative); Urine Protein 30 (1+) mg/dL (Neg-Trace)
[2025-01-24 13:31] LABS: Bacteria Urine None Seen (None Seen); Hyaline Casts Urine 0-2 /LPF (0-2); RBC Urine 0-2 /HPF (0-2); Squamous Epithelial Cell Urine 0-2 /HPF (0-2); WBC Urine 0-5 /HPF (0-5)
[2025-01-24 14:15] LABS: Creatinine Urine 126.72 mg/dL; Microalbum/Creatinine Ratio Ur 14.2 ug/mg cr (<30)
== END 2025-01-24 10:52 | disposition home or self-care (01) ==
LOC: HO.LAB 10:51
PROVIDERS: PCP Family Medicine; Visit Provider Family Medicine
DX: I12.9 Hypertensive chronic kidney disease with stage 1 through stage 4 chronic kidney disease, or unspecified chronic kidney disease (principal); N18.9 Chronic kidney disease, unspecified
CPT/HCPCS: 36415; 80048; 81001; 81003; 82043; 82570

== ENCOUNTER 2025-02-03 14:37 | Outpatient (AMB) | payer MEDICARE, SELFPAY ==
--- NOTE | 2025-02-03 14:41 | HO.NEPHOV ---
Vital Signs 02/03/25 14:44 Height 5 ft 11 in Weight 209 lb BMI 29.1 BP 126/62 Blood Pressure Location Lt brachial Position Sitting Pulse 87 Pulse Source Pulse Oximeter Pulse Oximetry (%) 95 Oxygen Delivery Method Room Air Intake Visit Reasons: INP: Chronic kidney disease [place] Required: No Accompanied by: Self / Same As Patient Allergies No Known Allergies (No Known Allergies*) Allergy (Verified 02/03/25 14:41) Medication List - Last Reconciled 02/03/25 by Jose Roberto Montes MD albuterol sulfate 90 mcg/actuation (Ventolin HFA) 2 puffs inhalation Q4-6H PRN APAP Machine/Device CPAP/APAP 6-20 CM H2O, Daily, As directed. 999 days. Kit with tubing, mask & supplies. dapagliflozin propanediol 10 mg PO DAILY 90 days glipizide ER 2.5 mg PO DAILY lisinopril 20 mg PO DAILY 90 days lorazepam 1 mg PO BID 30 days metformin 500 mg PO BID 90 days miscellaneous medical supply [employer] CPAP/APAP machine, [id number], Daily As directed, 999 days omeprazole 20 mg PO DAILY 90 days sertraline 100 mg PO DAILY simvastatin 40 mg PO DAILY 90 days Synthroid (levothyroxine) 25 mcg PO DAILY 90 days NS HPI Comments Details: 84-year-old male presenting with chronic kidney disease and prediabetes. His kidney function has shown fluctuations in creatinine levels, with the most recent being 1.84 mg/dL, and an eGFR of approximately 38% to 44%. He has a history of prediabetes, managed with metformin, and currently takes Farxiga, which was recently increased to 10 mg. The patient is also diagnosed with hypertension, managed with lisinopril 20 mg QD, No significant proteinuria No retinopathy per [employer] He has been using a CPAP machine for sleep apnea for over a decade, with regular adherence. [facility] Medical History (Updated 02/03/25 @ 15:01 by Jose Roberto Montes MD) Otogenic otalgia of right ear Cerumen impaction Surgical History No pertinent past surgical history Family History Brother Prostate cancer Son Muscular dystrophy Social History Household Members: Children Housing: House Alcohol intake: never Patient Tobacco Use Status: Never used Tobacco e-Cigarette/Vaping Use: Never Used Second Hand Smoke Exposure: No service: No Current occupational status: retired Current occupational exposures/hazards: No Cognitive needs: No Hearing needs: Yes (hearing aide) Vision needs: No Review of Systems Const Denies anorexia, Denies fever(s) and Denies weakness Eyes Denies blurry vision Card Denies no additional complaints and Denies dyspnea Resp Reports no additional complaints, Reports cough and Denies dyspnea GI Denies melena and Denies diarrhea Denies hematuria Musc Denies tingling Skin/Breast Denies rash Neuro Denies focal weakness, Denies tingling, Denies tremor(s) and Denies weakness Physical Exam Vital Signs: Last Vital Signs Pulse 87 02/03/25 14:44 BP 126/62 02/03/25 14:44 Pulse Ox 95 02/03/25 14:44 Oxygen Delivery Method Room Air 02/03/25 14:44 BMI result Body Mass Index 29.1 Comfortable Neck supple no JVD. Lungs entry equal no rales. Heart S1-S2 heard no gallop or rub. Abdomen soft nontender. Neuro alert awake oriented. No asterixis. Extremities no edema. Results Reviewed Results Reviewed: Nephrology Results: Hgb, (14.0-18.0) 12.0 g/dl L 08/28/24 WBC, (4.8-10.8) 5.3 X10*3/uL 08/28/24 Plt Count, (160-400) 140 X10*3/uL L 08/28/24 Sodium, (135-145) 139 mmol/L 01/24/25 Potassium, (3.3-5.1) 4.7 mmol/L 01/24/25 Chloride, (96-108) 111 mmol/L H 01/24/25 Carbon Dioxide, (22-29) 20 mmol/L L 01/24/25 BUN, (9-16) 37 mg/dL H 01/24/25 Creatinine, (0.5-1.4) 1.84 mg/dL H 01/24/25 Calcium, (8.4-10.2) 8.9 mg/dL Δ 01/24/25 Urine Protein, (Neg-Trace) 30 (1+) mg/dL H 01/24/25 Urine Creatinine 126.72 mg/dL 01/24/25 Assessment & Plan Assessment & Plan (1) Essential hypertension: Code(s): I10 - Essential (primary) hypertension Category: Medical (2) CKD (chronic kidney disease) stage 3, GFR 30-59 ml/min: Code(s): N18.30 - Chronic kidney disease, stage 3 unspecified Category: Medical Plan CKD 3 in the setting of longstanding diabetes mellitus. 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 No significant proteinuria. Obstruction should be ruled out. No clinical indication suggestive of glomerular nephritis or interstitial disease. There could be a component of hypoperfusion contributing to the decline in GFR. Blood pressure is relatively low and he is on adequate dose of MAYLIN inhibition. Blood pressure is acceptable. Recommendations Increase p.o. fluid intake Decrease lisinopril to 10 mg a day since his blood pressure is relatively low Obtain renal ultrasonogram to rule out hydronephrosis/obstruction Maintain blood pressure around 120/80 and avoid hypotension. Continue to maintain hemoglobin A1c less than 7%. Further workup will depend on the outcome of the baseline investigations All his questions were answered Orders: Orders US renal BI Today I10 - Essential (primary) hypertension, N18.30 - Chronic kidney disease, stage 3 unspecified Basic Metabolic Panel 4 Weeks I10 - Essential (primary) hypertension, N18.30 - Chronic kidney disease, stage 3 unspecified Medications: Changed From lisinopril 20 mg PO DAILY 90 days 90 tabs 2RF I10 - Essential (primary) hypertension To lisinopril 10 mg PO DAILY 90 tabs 2RF 90 days I10 - Essential (primary) hypertension Coding Level of Care Code New Pt Level 4 (74180) Diagnoses Essential hypertension I10 CKD (chronic kidney disease) stage 3, GFR 30-59 ml/min N18.30
[2025-02-03 14:44] VITALS: BP 126/62; PULSE 87; O2SAT 95; BMI 29.1
--- OUTSIDE RECORDS SUMMARY | 2025-02-03 16:11 | XMS_ITS | Patient Health Record ---
Author Organization [facility] Address [address] [place] [address] Care Team Providers Care Payroll Administrative Assistant Name Role Phone Arelis CAMPOS, Aide Primary Care Provider UnavailMayco Horton Unavailable [phone] Reason For Referral No Information Medications Medication SIG (Take, Route, Fr equency, Duration) Notes Start Date End Date Status Ranitidine HCl 150 MG TK 1 T PO BID Oral for 30 Active Sertraline HCl 100 MG TK 1 T PO QD Oral for 30 Active metFORMIN HCl 1000 MG TK 1 T PO BID Oral Twice a day Active Omeprazole 20 MG 1 capsule Orally Onc e a day for 30 day(s) 01/06/2018 Active LORazepam 1 MG 1 ml at bedtime as n eeded Oral bid Active Simvastatin 40 MG TK 1 T PO QD Oral for 30 Active Lisinopril 10 MG TK 1 T PO DAILY Oral for 30 Active Social History Tobacco Use: Social History Observation Description Date Details (start date - stop date) Former Smoker NA - NA Tobacco Use/Smoking Question Answer Notes Patient is a former smoker How long has it been since you last smoked? > 10 years Alcohol Screen Question Answer Notes Did you have a drink contain ing alcohol in the past year? Yes How often did you have a dri nk containing alcohol in the past year? Monthly or less (1 point) How many drinks did you have on a typical day when you were drinking in the past year? 1 or 2 drinks (0 point) How often did you have 6 or more drinks on one occasion in the past year? Never (0 point) Points 1 Interpretation Negative Section Notes: Nonsmoker; Occasional drink Problems Problem Type SNOMED Code ICD Code Onset Dates Problem Status W/U Status Risk Notes Problem [id number] Heme + stool (R19.5) Active confirmed Plan Of Treatment Future Test Test Name Order Date COLONOSCOPY 01/03/2018 Insurance Providers Payer Name Payer Address Payer Phone Subscriber Number Group Number Insured Name Patient Relationship to Insured Coverage Start Date Coverage End Date [facility] [address] [facility] [place], [place] [phone] [id number] SONU BENDER Self - patient is the insured Medical (General) History Medical History History ICD Code Sleep apnea- CPAP machine NIDDM Denies [place],CVA,Lung disease,renal disease Hypercholesterolemia Told of a HH after an UGI HTN Anxiety
== END 2025-02-03 15:07 | disposition home or self-care (01) ==
LOC: HO.HKA 14:38
PROVIDERS: PCP Family Medicine; Referring Provider Family Medicine; Visit Provider Internal Medicine Hypertension Specialist
DX: I10 Essential (primary) hypertension (principal); N18.30 Chronic kidney disease, stage 3 unspecified
CPT/HCPCS: 99204

== ENCOUNTER → 2025-02-03 14:37 | Outpatient (BNVA) | payer MEDICARE, SELFPAY | PROVIDERS: PCP Family Medicine; Referring Provider Family Medicine; Visit Provider Internal Medicine Hypertension Specialist | DX: I10 Essential (primary) hypertension (principal); N18.30 Chronic kidney disease, stage 3 unspecified; R73.03 Prediabetes; Z79.84 Long term (current) use of oral hypoglycemic drugs | CPT/HCPCS: 99202 ==

== ENCOUNTER 2025-02-10 13:40 | Outpatient (REF) | payer MEDICARE, SELFPAY ==
--- NOTE | ~2025-02-10 | US_ITS ---
EXAMINATION: Ultrasound renal bilaterally. CLINICAL INFORMATION: Essential hypertension. COMPARISON: April 22, 2022. TECHNIQUE: Real-time ultrasound kidneys using grayscale technique. FINDINGS: Right kidney: 11 x 6 x 6 cm. Normal echotexture. Normal renal cortical thickness. No hydronephrosis. There is a 1.9 cm anechoic lesion in the anterior midportion without patient's or flow on color Doppler interrogation. Left kidney: 10 x 5 x 4 cm. Normal echotexture. Normal renal cortical thickness. No hydronephrosis. No gross solid or cystic lesion detected. US/US renal BI IMPRESSION: No hydronephrosis. 1.9 cm cystic lesion, right kidney. Electronically signed by: Cristobal Abraham MD 02/10/2025 02:06 PM EDT
--- OUTSIDE RECORDS SUMMARY | 2025-02-10 14:10 | XMS_ITS | Patient Health Record ---
Author Organization [facility] Address [address] [place] [address] Care Team Providers Care Field Manager Name Role Phone Arelis CAMPOS, Aide Primary Care Provider UnavailMayco Horton Unavailable [phone] Reason For Referral No Information Medications Medication [...] Problem Status W/U Status Risk Notes Problem [id number] Heme + stool (R19.5) Active confirmed Plan Of Treatment Future Test Test Name Order Date COLONOSCOPY 01/03/2018 Insurance Providers Payer Name Payer Address Payer Phone Subscriber Number Group Number Insured Name Patient Relationship to Insured Coverage Start Date Coverage End Date [facility] [address] [facility] [place], [place] [phone] [id number] SONU BENDER Self - patient is the insured Medical (General) History Medical History History ICD Code Sleep apnea- CPAP machine NIDDM Denies [place],CVA,Lung disease,renal disease Hypercholesterolemia Told of a HH after an UGI HTN Anxiety
== END 2025-02-10 13:41 | disposition home or self-care (01) ==
LOC: HO.US 13:40
PROVIDERS: Visit Provider Internal Medicine Hypertension Specialist
DX: I12.9 Hypertensive chronic kidney disease with stage 1 through stage 4 chronic kidney disease, or unspecified chronic kidney disease (principal); N18.30 Chronic kidney disease, stage 3 unspecified
CPT/HCPCS: 76775

== ENCOUNTER → 2025-02-10 13:42 | Outpatient (BNV) | payer MEDICARE, SELFPAY | PROVIDERS: Visit Provider Radiology Diagnostic Radiology | DX: N28.1 Cyst of kidney, acquired (principal) | CPT/HCPCS: 76775 ==

== ENCOUNTER 2025-02-12 15:47 | Outpatient (AMB) | payer MEDICARE, SELFPAY ==
--- NOTE | 2025-02-12 15:50 | A.OFFPC_ITS ---
Vital Signs 02/12/25 16:02 Height 5 ft 11 in Weight 206 lb 4 oz BMI 28.8 BP 122/64 Blood Pressure Location Rt brachial Position Sitting Respiration 14 Pulse 70 Pulse Source Pulse Oximeter Temp 97.2 F Temp Source Temporal Artery Scan Pulse Oximetry (%) 95 Oxygen Delivery Method Room Air Intake Visit Reasons: CPE- see comments Intake Note: Jarvis presents in the office today for his annual physical. Allergies No Known Allergies (No Known Allergies*) Allergy (Verified 02/12/25 15:55) Medication List - Last Reconciled 02/12/25 by Naga Leon MD albuterol sulfate 90 mcg/actuation (Ventolin HFA) 2 puffs inhalation Q4-6H PRN APAP Machine/Device CPAP/APAP 6-20 CM H2O, Daily, As directed. 999 days. Kit with tubing, mask & supplies. dapagliflozin propanediol 10 mg PO DAILY 90 days glipizide ER 5 mg PO QAM 90 days levothyroxine (Synthroid) 25 mcg PO DAILY 90 days lisinopril 10 mg PO DAILY 90 days lorazepam 1mg daytime and 1.5mg at bedtime orally 2 times a day; MassPat verified. Partial refill upon request. 30 days metformin 500 mg PO BID 90 days miscellaneous medical supply [employer] CPAP/APAP machine, [id number], Daily As directed, 999 days omeprazole 20 mg PO DAILY 90 days sertraline 100 mg PO DAILY simvastatin 40 mg PO DAILY 90 days Tobacco use date assessed: 02/12/25 Fall risk assessment: No Falls in past year Last assessed Fall Risk: 02/12/25 Dental Screening Dental Screen Date: 02/12/25 Did you have a dental visit in the last 12 months?: Yes Did you have a dental problem in the last 6 months where you did not have access to dental care?: No Was dental information given to patient?: Patient has dentist HPI CPE- see comments HPI Details 84 y/o male presents for a CPE with f.u labs and health maint. Labs drawn 01/24/25. Reviewed labs with pt. Creatinine level 1.84 mg/dL. A1c 5.8%. Blood pressure today 122/64, 70p. He is on lisinopril 10mg daily. [facility] Medical History (Updated 02/12/25 @ 16:44 by Maxime Pappas) Otogenic otalgia of right ear Cerumen impaction Surgical History No pertinent past surgical history Family History Brother Prostate cancer Son Muscular dystrophy Social History (Updated 02/12/25 @ 15:57 by Maddy Quinones MA) Household Members: Children Housing: House Alcohol intake: never Patient Tobacco Use Status: Never used Tobacco e-Cigarette/Vaping Use: Never Used Second Hand Smoke Exposure: No service: No Current occupational status: retired Current occupational exposures/hazards: No Cognitive needs: No Hearing needs: Yes (hearing aide) Vision needs: No Questionnaire PHQ-9 Over the last 2 weeks, how often have you been bothered by any of the following problems? 1. Little interest or pleasure in doing things: several days 2. Feeling down, depressed, or hopeless: several days 3. Trouble falling or staying asleep, or sleeping too much: more than half the days 4. Feeling tired or having little energy: several days 5. Poor appetite or overeating: not at all 6. Feeling bad about yourself - or that you are a failure or have let yourself or your family down: not at all 7. Trouble concentrating on things, such as reading the newspaper or watching television: several days 8. Moving or speaking so slowly that other people could have noticed. Or the opposite - being so fidgety or restless that you have been moving around a lot more than usual: not at all 9. Thoughts that you would be better off or of hurting yourself in some way: not at all Total score: 6 Depression Screening Interpretation: Positive Depression Screening Done: Yes 74105 - PHQ-9 Billing: Yes Source: Developed by Drs. Mayco Pelletier, Rachel Hu, Roge Fairchild and colleagues, with an educational sylvain from [employer]. Thrive Questionnaire Date Thrive assessed: 02/12/25 I am a: Patient What is your living situation today?: I have a steady place to live Within the past 12 months, did the food you bought not last and you didn't have the money to get more?: Never true Within the past 12 months, did you worry whether your food would run out before you got money to buy more?: Never true Do you have trouble paying for medicines?: No Do you have trouble getting transportation to medical appointments?: No Do you have trouble paying your heating and electricity bill?: No Do you have trouble taking care of your child, family member or friend?: No Do you have trouble with day-to-day activities such as bathing, preparing meals, shopping, managing finances, etc.?: No Are you currently unemployed and looking for a job?: No Are you interested in more education?: No Please select the resources that you would like help with: None Currently or been in a relationship where the following occur: No concerns reported THRIVE Score: 0 AUDIT C Alcohol Use Questionnaire (AUDIT-C) 1. How often do you have a drink containing alcohol?: Never 2. How many drinks containing alcohol do you have on a typical day when you are drinking?: 1 or 2 3. How often do you have six or more drinks on one occasion?: Never Total Score: 0 KOMAL-7 AMB Questionnaire KOMAL-7 Date KOMAL - 7 assessed: 02/12/25 Feeling nervous, anxious, or on edge: 2 = More than half the days Not being able to stop or control worryin = Several days Worrying too much about different things: 2 = More than half the days Trouble relaxin = Several days Being so restless that it is hard to sit still: 0 = Not at all Becoming easily annoyed or irritable: 0 = Not at all Feeling afraid as if something awful might happen: 0 = Not at all Total KOMAL-7 score (0-4 normal; 5-9 mild; 10-14 moderate; 15-21 severe): 6 Source: Developed by Drs. Mayco Pelletier, Rachel Hu, Roge Fairchild and colleagues, with an educational sylvain from [employer]. KOMAL-7 Assessment Billing KOMAL-7 Assessment Tool: KOMAL-7 Assessment 94677 Review of Systems Const Denies chills, Denies fatigue, Denies fever(s), Denies headache(s) and Denies weakness Eyes Denies change in vision ENT Denies dizziness and Denies headache(s) Card Denies chest pain, Denies lightheadedness, Denies dyspnea and Denies other (Palpitations) Resp Denies cough, Denies dyspnea, Denies wheezing and Denies other ( shortness of breath) GI Denies abdominal pain, Denies melena, Denies hematochezia, Denies change in bowel habits, Denies dyspepsia and Denies nausea Denies hematuria and Denies dysuria Musc Denies numbness and Denies tingling Skin/Breast Denies rash, Denies unusual bruising and Denies wounds Neuro Denies dizziness, Denies headache(s), Denies numbness, Denies Sensory deficit (Neuro), Denies tingling, Denies paresthesias and Denies weakness Psych Denies anxiety and Denies depression Endo Denies fatigue Jose/Lymph Denies easy bleeding and Denies easy bruising Aller/Immun Denies wheezing Physical exam (Primary Care) Vital Signs: Last Vital Signs Temp 97.2 F 02/12/25 16:02 Pulse 70 02/12/25 16:02 Resp 14 02/12/25 16:02 BP 122/64 02/12/25 16:02 Pulse Ox 95 02/12/25 16:02 Oxygen Delivery Method Room Air 02/12/25 16:02 BMI result Body Mass Index 28.8 Tobacco/Smoking Status: Tobacco use Status Tobacco use date assessed 02/12/25 02/12/25 16:06 Patient Tobacco Use Status Never used Tobacco 02/12/25 15:57 e-Cigarette/Vaping Use Never Used 02/12/25 15:57 PHQ-9: PHQ-9 Score PHQ-9: Total score 6 02/12/25 16:17 Depression Screening Interpretation: Positive Thrive Assessment: Date of Thrive Assessment Date Thrive assessed 02/12/25 02/12/25 15:52 Currently or been in a relationship where the following occur: No concerns reported Const General: no acute distress and well developed Nutritional Appearance: well nourished Orientation/consciousness: patient oriented x3 HENMT Head: Yes normocephalic and Yes atraumatic Ears: hearing grossly normal bilaterally and TM's normal bilaterally General nose exam: Normal external nose present and Normal nares present Mouth: Normal oral and palatal mucosa present and moist mucous membranes Teeth and gingiva: dentition normal Throat: Yes posterior oropharynx normal Eyes General: appearance normal, both eyes and all related structures Pupils: Equal, round and reactive pupils present EOM: EOMs intact bilaterally Neck Neck: Yes normal visual inspection, Yes no lymphadenopathy and Yes trachea midline Thyroid: Thyroid normal Carotids: no bruits Lymphatic: no lymphadenopathy noted Chest Chest palpation & inspection: normal inspection of the chest Resp Effort & Inspection: normal respiratory effort Auscultation: clear to auscultation bilaterally Cardio Rate: tachycardic Rhythm: abnormal rhythm Heart sounds: S1 normal heart sound present, S2 normal heart sound present, no gallops, no murmurs and no rubs Bruits: no abdominal aortic bruits and no carotid bruits GI Palpation (GI): No Abdominal aortic bruit present, Soft to palpation, nontender, No hepatosplenomegaly present and No Rebound tenderness present Auscultation: normal bowel sounds General: Yes no CVA tenderness Back/Spine/Pelvis Back: no CVA tenderness Cervical Spine: cervical ROM normal and No Cervical spine tenderness Thoracic/Lumbar Spine: thoraco-lumbar ROM normal, No pain with thoraco-lumbar ROM, No thoracic spinal tenderness and No lumbar spinal tenderness Skin Lesions: no lesions Rashes: no rashes Trauma: no lacerations or abrasions Wounds: no wounds Nails: normal Neuro General: patient oriented x3 and gait normal Cranial nerves: Yes Equal, round and reactive pupils present Cognition (Neuro): normal cognition Gait exam (Neuro): Normal gait present Motor exam (neuro): 5/5 motor strength present throughout Sensory Exam: No Sensory deficit (Neuro) Deep tendon reflexes (DTR's): Right patellar reflex intensity grade: 2+ and Left patellar reflex intensity grade: 2+ Extrem General: Yes normal to inspection and No edema Psych Appearance: grossly normal Affect: normal affect Attitude: cooperative Thought process: Normal thought process present Coding Level of Care Code Est Pt Level 5 (59839) Diagnoses Adult general medical exam Z00.00 CRF (chronic renal failure) N18.9 Essential hypertension I10 Hyperlipidemia E78.5 Diabetes type 2, controlled E11.9 Atrial flutter I48.92 Screening for colon cancer Z12.11 Screening for prostate cancer Z12.5 Sleep apnea G47.30 Hypothyroidism E03.9 Anxiety F41.9 Additional Codes KOMAL-7 Assessment Billing - KOMAL-7 Assessment Tool: KOMAL-7 Assessment 42235 ([id number]) PHQ-9 - 07580 - PHQ-9 Billing: Yes ([id number]) Assessment & Plan Assessment & Plan (1) Adult general medical exam: Code(s): Z00.00 - Encounter for general adult medical examination without abnormal findings Category: Medical Plan: 84-year-old?male?presents?for?complete?physical?exam (2) CRF (chronic renal failure): Code(s): N18.9 - Chronic kidney disease, unspecified Category: Medical Plan: Has?had?mildly?decreasing?renal?function Followed?by?Nephrology?and lisinopril?was?decreased.??Also?recommended?increasing?hydration. Ultrasound?of?kidneys?showed?a?cyst Follow-up?with?nephrology?as?recommended (3) Essential hypertension: Code(s): I10 - Essential (primary) hypertension Category: Medical Plan: Blood?pressure?is?controlled Lisinopril?was?decreased?at?last?visit.??No?significant?change?in?blood?pressure .??Goal?is?less?than?140/90 Continue?current?medication?regimen (4) Hyperlipidemia: Code(s): E78.5 - Hyperlipidemia, unspecified Category: Medical Plan: He?is?on?simvastatin Will?check?lipids?with?next?blood?draw (5) Diabetes type 2, controlled: Code(s): E11.9 - Type 2 diabetes mellitus without complications Category: Medical Plan: A1c?had?improved?at?last?check?since?addition?of?Farxiga.??Most?recently?5.8%. Continue?current?medication?regimen?and?he?will?follow-up?in?April Hoping?to?decrease?metformin?further?due?to?renal?function. (6) Atrial flutter: Code(s): I48.92 - Unspecified atrial flutter Category: Medical Plan: EKG?atrial?flutter New?atrial?flutter. Denies?shortness?of?breath, dizziness?or?chest?pain. No fatugue. No palpitatins. Chads?score?4 Start?apixaban,?renally?dosed Will?send?a?small?dose?of?metoprolol?for?rate?control Patient?feels?well?and?is?hemodynamically?stable Referred?to?cardiology Rechecking?thyroid?levels. Patient?says?he?is?t aking?levothyroxine?as?prescribed. Using?CPAP?as?prescribed (7) Screening for colon cancer: Code(s): Z12.11 - Encounter for screening for malignant neoplasm of colon Category: Medical Plan: Patient?is?84?and?will?have?no?further?screening?for?colon?cancer (8) Screening for prostate cancer: Code(s): Z12.5 - Encounter for screening for malignant neoplasm of prostate Category: Medical Plan: Checking?PSA?with?next?blood?draw (9) Sleep apnea: Code(s): G47.30 - Sleep apnea, unspecified Category: Medical Plan: Using?CPAP (10) Hypothyroidism: Code(s): E03.9 - Hypothyroidism, unspecified Category: Medical Plan: Checking?thyroid?hormone?level Continue?levothyroxine (11) Anxiety: Code(s): F41.9 - Anxiety disorder, unspecified Category: Medical Plan: Mildly?worsened?anxiety?which?he?attributes?to?changing?health?of?his?son?and?hi s?pet Anxiety?in?evenings?before?bed Adjusting?lorazepam Orders: Orders Lipid Panel Today Z00.00 - Encounter for general adult medical examination without abnormal findings Free T4 (Free Thyroxine) Today E03.9 - Hypothyroidism, unspecified Triiodothyronine T3 Total Today E03.9 - Hypothyroidism, unspecified AMB EKG-In Office Today E03.9 - Hypothyroidism, unspecified, I10 - Essential (primary) hypertension Prostate Specific Antigen Scr Today Z12.5 - Encounter for screening for malignant neoplasm of prostate Comprehensive [place]. Panel Fast Today Z00.00 - Encounter for general adult medical examination without abnormal findings TSH reflex Free T4 Today E03.9 - Hypothyroidism, unspecified, Z00.00 - Encounter for general adult medical examination without abnormal findings Referrals Cardiology Referral I48.92 - Unspecified atrial flutter Medications: New apixaban 2.5 mg PO BID 60 tabs 2RF 30 days metoprolol succinate ER 12.5 mg (1/2 x 25 mg) PO DAILY 45 tabs 1RF 90 days Changed From Synthroid (levothyroxine) No Substitutions, Dispense as written. 25 mcg PO DAILY 90 days 90 tabs 2RF NS E03.9 - Hypothyroidism, unspecified To levothyroxine (Synthroid) No Substitutions, Dispense as written. 25 mcg PO DAILY 90 tabs 2RF 90 days E03.9 - Hypothyroidism, unspecified From lorazepam MassPat verified. Partial refill upon request. 1 mg PO BID 30 days 60 tabs 0RF E11.9 - Type 2 diabetes mellitus without complications To lorazepam 1mg daytime and 1.5mg at bedtime orally 2 times a day; MassPat verified. Partial refill upon request. 75 tabs 0RF 30 days E11.9 - Type 2 diabetes mellitus without complications
--- OUTSIDE RECORDS SUMMARY | 2025-02-12 15:50 | XMS_ITS | Patient Health Record ---
Author Organization [facility] Address [address] [place] [address] Care Team Providers Care Pm Head Cook Name Role Phone Arelis CAMPOS, Aide Primary Care Provider UnavailMayco Horton Unavailable [phone] Reason For Referral No Information Medications Medication [...] Problem Status W/U Status Risk Notes Problem [id number] Heme + stool (R19.5) Active confirmed Plan Of Treatment Future Test Test Name Order Date COLONOSCOPY 01/03/2018 Insurance Providers Payer Name Payer Address Payer Phone Subscriber Number Group Number Insured Name Patient Relationship to Insured Coverage Start Date Coverage End Date [facility] [address] [facility] [place] [phone] [id number] SONU BENDER Self - patient is the insured Medical (General) History Medical History History ICD Code Sleep apnea- CPAP machine NIDDM Denies [place],CVA,Lung disease,renal disease Hypercholesterolemia Told of a HH after an UGI HTN Anxiety
[2025-02-12 16:02] VITALS: BP 122/64; PULSE 70; RESP 14; TEMP 36.2; O2SAT 95; BMI 28.8
== END 2025-02-12 17:04 | disposition home or self-care (01) ==
LOC: HO.HMCFM 15:48
PROVIDERS: PCP Family Medicine; Visit Provider Family Medicine
DX: Z00.00 Encounter for general adult medical examination without abnormal findings (principal); I12.9 Hypertensive chronic kidney disease with stage 1 through stage 4 chronic kidney disease, or unspecified chronic kidney disease; E11.69 Type 2 diabetes mellitus with other specified complication; I48.92 Unspecified atrial flutter; N18.9 Chronic kidney disease, unspecified; E78.5 Hyperlipidemia, unspecified; Z12.11 Encounter for screening for malignant neoplasm of colon; Z12.5 Encounter for screening for malignant neoplasm of prostate; G47.30 Sleep apnea, unspecified; E03.9 Hypothyroidism, unspecified; F41.9 Anxiety disorder, unspecified

== ENCOUNTER → 2025-02-12 15:47 | Outpatient (BNVA) | payer MEDICARE, SELFPAY | PROVIDERS: PCP Family Medicine; Visit Provider Family Medicine | DX: Z00.00 Encounter for general adult medical examination without abnormal findings (principal); E11.22 Type 2 diabetes mellitus with diabetic chronic kidney disease; I12.9 Hypertensive chronic kidney disease with stage 1 through stage 4 chronic kidney disease, or unspecified chronic kidney disease; N18.9 Chronic kidney disease, unspecified; E78.5 Hyperlipidemia, unspecified; I48.92 Unspecified atrial flutter; G47.30 Sleep apnea, unspecified; E03.9 Hypothyroidism, unspecified; F41.9 Anxiety disorder, unspecified | CPT/HCPCS: 96127; 99212; 99397 ==

== ENCOUNTER 2025-03-07 10:36 | Outpatient (REF) | payer MEDICARE, SELFPAY ==
--- OUTSIDE RECORDS SUMMARY | 2025-03-07 10:46 | XMS_ITS | Patient Health Record ---
Author Organization [facility] Address [address] [place] [address] Care Team Providers Care Russian History Professor Name Role Phone Arelis CAMPOS, Aide Primary Care Provider UnavailMayco Horton Unavailable [phone] Reason For Referral No Information Medications Medication [...] Problem Status W/U Status Risk Notes Problem [id number] Heme + stool (R19.5) Active confirmed Plan Of Treatment Future Test Test Name Order Date COLONOSCOPY 01/03/2018 Insurance Providers Payer Name Payer Address Payer Phone Subscriber Number Group Number Insured Name Patient Relationship to Insured Coverage Start Date Coverage End Date [facility] [address] [facility] [place], [place] [phone] [id number] SONU BENDER Self - patient is the insured Medical (General) History Medical History History ICD Code Sleep apnea- CPAP machine NIDDM Denies [place],CVA,Lung disease,renal disease Hypercholesterolemia Told of a HH after an UGI HTN Anxiety
[2025-03-07 11:48] LABS: Anion Gap 12 (12-20); Blood Urea Nitrogen 41 mg/dL (9-16); Calcium 8.4 mg/dL (8.4-10.2); Carbon Dioxide 20 mmol/L (22-29); Chloride 113 mmol/L (96-108); Estimated Glomerular Filt Rate 30; Potassium 4.9 mmol/L (3.3-5.1); Sodium 140 mmol/L (135-145)
== END 2025-03-07 10:37 | disposition home or self-care (01) ==
LOC: HO.LAB 10:36
PROVIDERS: PCP Nurse Practitioner Family; Visit Provider Internal Medicine Hypertension Specialist
DX: I12.9 Hypertensive chronic kidney disease with stage 1 through stage 4 chronic kidney disease, or unspecified chronic kidney disease (principal); N18.30 Chronic kidney disease, stage 3 unspecified
CPT/HCPCS: 36415; 80048

== ENCOUNTER 2025-03-11 13:51 | Outpatient (AMB) | payer MEDICARE, SELFPAY ==
[2025-03-11 13:55] VITALS: BP 130/64; PULSE 103; O2SAT 96; BMI 28.9
--- NOTE | 2025-03-11 13:55 | HO.NEPHOV_ITS ---
Vital Signs 03/11/25 13:55 Height 5 ft 11 in Weight 207 lb BMI 28.9 BP 130/64 Blood Pressure Location Rt brachial Position Sitting Pulse 103 H Pulse Source Pulse Oximeter Pulse Oximetry (%) 96 Oxygen Delivery Method Room Air Intake Visit Reasons: 1 MO FU Guardian Family Member Required: No Accompanied by: Self / Same As Patient Allergies No Known Allergies (No Known Allergies*) Allergy (Verified 03/11/25 13:57) Medication List - Last Reconciled 03/11/25 by Jose Roberto Montes MD albuterol sulfate 90 mcg/actuation (Ventolin HFA) 2 puffs inhalation Q4-6H PRN APAP Machine/Device CPAP/APAP 6-20 CM H2O, Daily, As directed. 999 days. Kit with tubing, mask & supplies. apixaban 2.5 mg PO BID 30 days dapagliflozin propanediol 10 mg PO DAILY 90 days glipizide ER 5 mg PO QAM 90 days levothyroxine (Synthroid) 25 mcg PO DAILY 90 days lisinopril 10 mg PO DAILY 90 days lorazepam 1mg daytime and 1.5mg at bedtime orally 2 times a day; [employer]Pat verified. Partial refill upon request. 30 days metformin 500 mg PO BID 90 days metoprolol succinate ER 12.5 mg (1/2 x 25 mg) PO DAILY 90 days miscellaneous medical supply [employer] CPAP/APAP machine, [id number], Daily As directed, 999 days omeprazole 20 mg PO DAILY 90 days sertraline 100 mg PO DAILY simvastatin 40 mg PO DAILY 90 days HPI Comments Details: 84-year-old male presenting with chronic kidney disease and prediabetes. His kidney function has shown fluctuations in creatinine levels, with the most recent being 1.84 mg/dL, and an eGFR of approximately 38% to 44%. He has a history of prediabetes, managed with metformin, and currently takes Farxiga, which was recently increased to 10 mg. The patient is also diagnosed with hypertension, managed with lisinopril 20 mg QD, No significant proteinuria No retinopathy per Hull Sorter He has been using a CPAP machine for sleep apnea for over a decade, with regular adherence. 03/11/25 Overall doing well. No new compliants Creatinine has bumped up to 2.1 [facility] Medical History (Updated 02/12/25 @ 16:44 by Maxime Pappas) Otogenic otalgia of right ear Cerumen impaction Surgical History No pertinent past surgical history Family History Brother Prostate cancer Son Muscular dystrophy Social History Household Members: Children Housing: House Alcohol intake: never Patient Tobacco Use Status: Never used Tobacco e-Cigarette/Vaping Use: Never Used Second Hand Smoke Exposure: No service: No Current occupational status: retired Current occupational exposures/hazards: No Cognitive needs: No Hearing needs: Yes (hearing aide) Vision needs: No Physical Exam Vital Signs: Last Vital Signs Pulse 103 H 03/11/25 13:55 BP 130/64 03/11/25 13:55 Pulse Ox 96 03/11/25 13:55 Oxygen Delivery Method Room Air 03/11/25 13:55 BMI result Body Mass Index 28.9 Comfortable Neck supple no JVD. Lungs entry equal no rales. Heart S1-S2 heard no gallop or rub. Abdomen soft nontender. Neuro alert awake oriented. No asterixis. Extremities no edema. Results Reviewed Nephrology Results: Sodium, (135-145) 140 mmol/L 03/07/25 Potassium, (3.3-5.1) 4.9 mmol/L 03/07/25 Chloride, (96-108) 113 mmol/L H 03/07/25 Carbon Dioxide, (22-29) 20 mmol/L L 03/07/25 BUN, (9-16) 41 mg/dL H 03/07/25 Creatinine, (0.5-1.4) 2.15 mg/dL H 03/07/25 Calcium, (8.4-10.2) 8.4 mg/dL 03/07/25 Urine Protein, (Neg-Trace) 30 (1+) mg/dL H 01/24/25 Urine Creatinine 126.72 mg/dL 01/24/25 Renal US 02/10/25 Assessment & Plan Assessment & Plan (1) Essential hypertension: Code(s): I10 - Essential (primary) hypertension Category: Medical (2) CKD (chronic kidney disease) stage 3, GFR 30-59 ml/min: Code(s): N18.30 - Chronic kidney disease, stage 3 unspecified Category: Medical Plan CKD 3 in the setting of longstanding diabetes mellitus. 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 No significant proteinuria. No clinical indication suggestive of glomerular nephritis or interstitial disease. There could be a component of hypoperfusion contributing to the decline in GFR. Blood pressure is relatively low and he is on adequate dose of MAYLIN inhibition. Blood pressure is acceptable. renal ultrasonogram- No hydronephrosis/obstruction UA is benign No hematuria or proteinuria Recommendations Increase p.o. fluid intake Stop lisinopril 10 mg a day Maintain blood pressure around 120/80 and avoid hypotension. Continue to maintain hemoglobin A1c less than 7%. Avoid nephrotoxins/NSAIDS Orders: Orders Blood Urea Nitrogen 6 Weeks N18.4 - Chronic kidney disease, stage 4 (severe) Medications: Discontinued lisinopril Discontinued Reason: Doctor's Order 10 mg PO DAILY 90 days 90 tabs 2RF I10 - Essential (primary) hypertension Coding Level of Care Code Est Pt Level 4 (40962) Diagnoses Essential hypertension I10 CKD (chronic kidney disease) stage 3, GFR 30-59 ml/min N18.30
--- OUTSIDE RECORDS SUMMARY | 2025-03-11 14:36 | XMS_ITS | Patient Health Record ---
Author Organization [facility] Address [address] [place] [address] Care Team Providers Care Type Cutter Name Role Phone Arelis CAMPOS, Aide Primary Care Provider UnavailMayco Horton Unavailable [phone] Reason For Referral No Information Medications Medication [...] Problem Status W/U Status Risk Notes Problem [id number] Heme + stool (R19.5) Active confirmed Plan Of Treatment Future Test Test Name Order Date COLONOSCOPY 01/03/2018 Insurance Providers Payer Name Payer Address Payer Phone Subscriber Number Group Number Insured Name Patient Relationship to Insured Coverage Start Date Coverage End Date [facility] [address] [facility] [place], [place] [phone] [id number] SONU BENDER Self - patient is the insured Medical (General) History Medical History History ICD Code Sleep apnea- CPAP machine NIDDM Denies [place],CVA,Lung disease,renal disease Hypercholesterolemia Told of a HH after an UGI HTN Anxiety
== END 2025-03-11 14:14 | disposition home or self-care (01) ==
LOC: HO.HKA 13:52
PROVIDERS: PCP Family Medicine; Visit Provider Internal Medicine Hypertension Specialist
DX: I10 Essential (primary) hypertension (principal); N18.30 Chronic kidney disease, stage 3 unspecified
CPT/HCPCS: 99214

== ENCOUNTER → 2025-03-11 13:51 | Outpatient (BNVA) | payer MEDICARE, SELFPAY | PROVIDERS: PCP Family Medicine; Visit Provider Internal Medicine Hypertension Specialist | DX: N18.4 Chronic kidney disease, stage 4 (severe) (principal); R73.03 Prediabetes; I10 Essential (primary) hypertension | CPT/HCPCS: 99212 ==

== ENCOUNTER 2025-03-17 12:32 | Outpatient (AMB) | payer MEDICARE, SELFPAY ==
[2025-03-17 12:37] VITALS: BP 138/68; PULSE 67; BMI 28.0
--- NOTE | 2025-03-17 12:37 | MHC.OFFVIS ---
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 999 days. Kit with tubing, mask & supplies. apixaban 2.5 mg PO BID 30 days dapagliflozin propanediol 10 mg PO DAILY 90 days glipizide ER 5 mg PO QAM 90 days levothyroxine (Synthroid) 25 mcg PO DAILY 90 days lorazepam 1mg daytime and 1.5mg at bedtime orally 2 times a day; [facility] verified. Partial refill upon request. 30 days metformin 500 mg PO BID 90 days metoprolol succinate ER 12.5 mg (1/2 x 25 mg) PO DAILY 90 days miscellaneous medical supply [employer] CPAP/APAP machine, [id number], Daily As directed, 999 days omeprazole 20 mg PO DAILY 90 days sertraline 100 mg PO DAILY simvastatin 40 mg PO DAILY 90 days HPI Comments Details: The patient is an 84-year-old male presenting for evaluation of atrial flutter. The atrial flutter was first identified approximately one month ago during an EKG at PCP office. The patient was asymptomatic at the time and has not experienced any related symptoms such as chest pain or dyspnea. He was prescribed Eliquis as a precautionary measure. The patient has no history of myocardial infarction, coronary artery disease, or previous cardiac interventions. He has never been hospitalized and reports no limitations in physical activity, including the ability to perform yard work and climb stairs without difficulty. The patient also has a history of sleep apnea, for which he uses a CPAP machine. Additionally, he is on medication for diabetes mellitus and hyperlipidemia. [facility] Medical History (Updated 02/12/25 @ 16:44 by Maxime Pappas) Otogenic otalgia of right ear Cerumen impaction Surgical History No pertinent past surgical history Family History Brother Prostate cancer Son Muscular dystrophy Social History Household Members: Children Housing: House Alcohol intake: never Patient Tobacco Use Status: Never used Tobacco e-Cigarette/Vaping Use: Never Used Second Hand Smoke Exposure: No service: No Current occupational status: retired Current occupational exposures/hazards: No Cognitive needs: No Hearing needs: Yes (hearing aide) Vision needs: No Review of Systems Const Denies weakness ENT Denies dizziness Card Denies chest pain, Denies chest pain with activity, Denies syncope, Denies rapid heart rate, Denies pedal edema, Denies edema, Denies leg edema, Denies lightheadedness, Denies palpitations, Denies dyspnea, Denies dyspnea on exertion and Denies orthopnea Resp Denies cough, Denies dyspnea and Denies dyspnea on exertion GI Denies hematochezia and Denies change in stool character Musc Denies abnormal gait, Denies muscle cramps, Denies muscle weakness, Denies numbness, Denies radiating pain into limb and Denies tingling Neuro Denies abnormal gait, Denies dizziness, Denies syncope, Denies numbness, Denies tingling and Denies weakness Endo Denies palpitations Physical Exam Vital Signs: Last Vital Signs Pulse 67 03/17/25 12:37 BP 138/68 03/17/25 12:37 BMI result Body Mass Index 28.0 Const General: comfortable and no acute distress Orientation/consciousness: patient oriented x3 HEENT Other: Unremarkable Head: Yes normal to inspection Neck Neck: Yes normal visual inspection Chest Chest palpation & inspection: normal inspection of the chest Resp Auscultation: clear to auscultation bilaterally Cardio Palpation: normal PMI Heart sounds: S1 normal heart sound present, S2 normal heart sound present, no gallops, no murmurs and no rubs GI Palpation (GI): Soft to palpation Back/Spine/Pelvis Other: unremarkable Skin General skin exam: no rashes or lesions noted Neuro General: patient oriented x3 Extrem General: Yes normal to inspection Psych Mental Status: mental status grossly normal Office Procedures EKG Details: EKG with sinus rhythm at 67/Min; premature supraventricular complexes with aberrant conduction; [place]. [address]-[id number], Complete Assessment & Plan Assessment & Plan (1) Atrial flutter: Code(s): I48.92 - Unspecified atrial flutter Category: Medical Plan This is from PCP note. There is no EKG available from that date for confirmation. Today's EKG shows rather sinus rhythm. We will obtain an echocardiogram and Holter monitor for further evaluation. We will need to contact PCP office for the EKG showing atrial flutter. Otherwise, he is on a small dose of beta-blockers and Eliquis and no changes made with that. Follow up in a few weeks' time. Orders: Orders CA echo transthoracic complete Today I48.92 - Unspecified atrial flutter ECG 7 day holter monitor Today I48.92 - Unspecified atrial flutter Coding Level of Care Code New Pt Level 4 (43201) Diagnoses Atrial flutter I48.92 CPT Codes EKG - CPT: 23080-[id number], Complete ([id number])
--- OUTSIDE RECORDS SUMMARY | 2025-03-17 13:00 | XMS_ITS | Patient Health Record ---
Author Organization [facility] Address [address] [place] [address] Care Team Providers Care Radiator Tester Name Role Phone Arelis CAMPOS, Aide Primary Care Provider UnavailMayco Horton Unavailable [phone] Reason For Referral No Information Medications Medication [...] Problem Status W/U Status Risk Notes Problem [id number] Heme + stool (R19.5) Active confirmed Plan Of Treatment Future Test Test Name Order Date COLONOSCOPY 01/03/2018 Insurance Providers Payer Name Payer Address Payer Phone Subscriber Number Group Number Insured Name Patient Relationship to Insured Coverage Start Date Coverage End Date [facility] [address] [facility] [place], [place] [phone] [id number] SONU BENDER Self - patient is the insured Medical (General) History Medical History History ICD Code Sleep apnea- CPAP machine NIDDM Denies [place],CVA,Lung disease,renal disease Hypercholesterolemia Told of a HH after an UGI HTN Anxiety
== END 2025-03-17 13:00 | disposition home or self-care (01) ==
LOC: HO.HCS 12:33
PROVIDERS: PCP Nurse Practitioner Family; Visit Provider Internal Medicine
DX: I48.92 Unspecified atrial flutter (principal)
CPT/HCPCS: 93010; 99204

== ENCOUNTER → 2025-03-17 12:32 | Outpatient (BNVA) | payer MEDICARE, SELFPAY | PROVIDERS: PCP Nurse Practitioner Family; Visit Provider Internal Medicine | DX: G47.33 Obstructive sleep apnea (adult) (pediatric) (principal); I48.92 Unspecified atrial flutter; Z99.89 Dependence on other enabling machines and devices; E11.9 Type 2 diabetes mellitus without complications; E78.5 Hyperlipidemia, unspecified | CPT/HCPCS: 93005; 99202 ==

== ENCOUNTER 2025-04-08 11:28 | Outpatient (REF) | payer MEDICARE, SELFPAY ==
--- OUTSIDE RECORDS SUMMARY | 2025-04-08 12:28 | XMS_ITS | Patient Health Record ---
Author Organization [facility] Address [address] [place] [address] Care Team Providers Care Shipyard Helper Name Role Phone Arelis CAMPOS, Aide Primary Care Provider UnavailMayco Horton Unavailable [phone] Reason For Referral No Information Medications Medication [...] Problem Status W/U Status Risk Notes Problem [id number] Heme + stool (R19.5) Active confirmed Plan Of Treatment Future Test Test Name Order Date COLONOSCOPY 01/03/2018 Insurance Providers Payer Name Payer Address Payer Phone Subscriber Number Group Number Insured Name Patient Relationship to Insured Coverage Start Date Coverage End Date [facility] [address] [facility] [place], [place] [phone] [id number] SONU BENDER Self - patient is the insured Medical (General) History Medical History History ICD Code Sleep apnea- CPAP machine NIDDM Denies [place],CVA,Lung disease,renal disease Hypercholesterolemia Told of a HH after an UGI HTN Anxiety
[2025-04-08 13:13] LABS: Alanine Aminotransferase 22 U/L (0-40); Albumin Level 4.7 g/dL (3.5-5.0); Alkaline Phosphatase 66 U/L (39-117); Anion Gap 14 (12-20); Aspartate Amino Transferase 29 U/L (5-37); Blood Urea Nitrogen 31 mg/dL (9-16); Calcium 8.9 mg/dL (8.4-10.2); Carbon Dioxide 24 mmol/L (22-29); Chloride 107 mmol/L (96-108); Cholesterol 137 mg/dL (<200); Estimated Glomerular Filt Rate 30; HDL Cholesterol 40 mg/dL (>40); Potassium 4.8 mmol/L (3.3-5.1); Sodium 140 mmol/L (135-145); Total Protein 6.8 g/dL (6.5-8.0); Triglycerides 176 mg/dL (<150)
[2025-04-08 13:31] LABS: Free T4 (Free Thyroxine) 0.71 ng/dL (0.71-1.85)
== END 2025-04-08 11:29 | disposition home or self-care (01) ==
LOC: HO.LAB 11:28
PROVIDERS: PCP Family Medicine; Visit Provider Internal Medicine Hypertension Specialist
DX: E03.9 Hypothyroidism, unspecified (principal); Z12.5 Encounter for screening for malignant neoplasm of prostate; Z00.00 Encounter for general adult medical examination without abnormal findings
CPT/HCPCS: 36415; 80053; 80061; 84153; 84439; 84443; 84480

== ENCOUNTER 2025-04-11 10:48 | Outpatient (REF) | payer MEDICARE, SELFPAY ==
--- OUTSIDE RECORDS SUMMARY | 2025-04-11 11:28 | XMS_ITS | Patient Health Record ---
Author Organization [facility] Address [address] [place] [address] Care Team Providers Care Regional Owner Operator Truck Driver Name Role Phone Arelis CAMPOS, Aide Primary Care Provider UnavailMayco Horton Unavailable [phone] Reason For Referral No Information Medications Medication [...] Problem Status W/U Status Risk Notes Problem [id number] Heme + stool (R19.5) Active confirmed Plan Of Treatment Future Test Test Name Order Date COLONOSCOPY 01/03/2018 Insurance Providers Payer Name Payer Address Payer Phone Subscriber Number Group Number Insured Name Patient Relationship to Insured Coverage Start Date Coverage End Date [facility] [address] [facility] [place], [place] [phone] [id number] SONU BENDER Self - patient is the insured Medical (General) History Medical History History ICD Code Sleep apnea- CPAP machine NIDDM Denies [place],CVA,Lung disease,renal disease Hypercholesterolemia Told of a HH after an UGI HTN Anxiety
[2025-04-11 12:04] LABS: Appearance Urine Clear; Glucose Urine UA >=1000 mg/dL (Negative); PH 5.5 (5.0-9.0); Specific Gravity - Urine 1.020 (1.005-1.025); UMIC TRIGGER UACC YES
== END 2025-04-11 10:49 | disposition home or self-care (01) ==
LOC: HO.LAB 10:48
PROVIDERS: PCP Family Medicine; Visit Provider Family Medicine
DX: Z00.00 Encounter for general adult medical examination without abnormal findings (principal)
CPT/HCPCS: 81001; 81003

== ENCOUNTER 2025-04-28 11:07 | Outpatient (REF) | payer MEDICARE, SELFPAY ==
[2025-04-28 12:13] LABS: Appearance Urine Clear; Glucose Urine UA >=1000 mg/dL (Negative); PH 5.5 (5.0-9.0); Specific Gravity - Urine 1.020 (1.005-1.025); UMIC TRIGGER UACC YES
[2025-04-28 12:25] LABS: Blood Urea Nitrogen 26 mg/dL (9-16)
--- OUTSIDE RECORDS SUMMARY | 2025-04-28 14:50 | XMS_ITS | Patient Health Record ---
Author Organization [facility] Address [address] [place] [address] Care Team Providers Care Senior Quality Methods Specialist Name Role Phone Arelis CAMPOS, Aide Primary Care Provider UnavailMayco Horton Unavailable [phone] Reason For Referral No Information Medications Medication [...] Problem Status W/U Status Risk Notes Problem [id number] Heme + stool (R19.5) Active confirmed Plan Of Treatment Future Test Test Name Order Date COLONOSCOPY 01/03/2018 Insurance Providers Payer Name Payer Address Payer Phone Subscriber Number Group Number Insured Name Patient Relationship to Insured Coverage Start Date Coverage End Date [facility] [address] [facility] [place], [place] [phone] [id number] SONU BENDER Self - patient is the insured Medical (General) History Medical History History ICD Code Sleep apnea- CPAP machine NIDDM Denies [place],CVA,Lung disease,renal disease Hypercholesterolemia Told of a HH after an UGI HTN Anxiety
== END 2025-04-28 11:08 | disposition home or self-care (01) ==
LOC: HO.LAB 11:07
PROVIDERS: PCP Family Medicine; Visit Provider Internal Medicine Hypertension Specialist
DX: N18.4 Chronic kidney disease, stage 4 (severe) (principal)
CPT/HCPCS: 36415; 81001; 84520

== ENCOUNTER 2025-05-01 14:26 | Outpatient (AMB) | payer MEDICARE, SELFPAY ==
--- NOTE | 2025-05-01 14:34 | A.OFFPC_ITS ---
Vital Signs 05/01/25 14:40 Height 5 ft 11 in Weight 207 lb 8 oz BMI 28.9 BP 130/68 Blood Pressure Location Rt brachial Position Sitting Respiration 16 Pulse 64 Pulse Source Pulse Oximeter Temp 97.6 F Temp Source Oral Pulse Oximetry (%) 97 Oxygen Delivery Method Room Air Intake Visit Reasons: follow up 6m from specialist/meds Intake Note: patient here for follow up from specialist and meds Platform Loader Required: No Allergies No Known Allergies (No Known Allergies*) Allergy (Verified 05/01/25 14:37) Tobacco use date assessed: 05/01/25 Fall risk assessment: No Falls in past year Last assessed Fall Risk: 05/01/25 Dental Screening Dental Screen Date: 05/01/25 Did you have a dental visit in the last 12 months?: Yes Did you have a dental problem in the last 6 months where you did not have access to dental care?: No Was dental information given to patient?: Patient has dentist HPI follow up 6m from specialist/meds HPI Details 84 y/o male presents to f/u [facility]. Atrial flutter seen on EKG but this did not seem to have gotten scanned in. Had started him on apixaban, renally dosed and sent him a small dose of metoprolol for rate control. Had seen Cardiology 03/17/25. They ordered echocardiogram/Holter monitor for further evaluation. EKG that day showed sinus rhythm. BP today 130/68, 64p. He is on metoprolol 12.5mg daily. A1c today 5.7%. He is prescribed metformin 500mg b.i.d, glipizide 5mg daily. [facility] Medical History (Updated 05/01/25 @ 15:07 by Maxime Pappas) Otogenic otalgia of right ear Cerumen impaction Surgical History No pertinent past surgical history Family History Brother Prostate cancer Son Muscular dystrophy Social History Household Members: Children Housing: House Alcohol intake: never Patient Tobacco Use Status: Never used Tobacco e-Cigarette/Vaping Use: Never Used Second Hand Smoke Exposure: No service: No Current occupational status: retired Current occupational exposures/hazards: No Cognitive needs: No Hearing needs: Yes (hearing aide) Vision needs: No Questionnaire Thrive Questionnaire Date Thrive assessed: 09/23/24 I am a: Patient What is your living situation today?: I have a steady place to live Within the past 12 months, did the food you bought not last and you didn't have the money to get more?: Never true Within the past 12 months, did you worry whether your food would run out before you got money to buy more?: Never true Do you have trouble paying for medicines?: No Do you have trouble getting transportation to medical appointments?: No Do you have trouble paying your heating and electricity bill?: No Do you have trouble taking care of your child, family member or friend?: No Do you have trouble with day-to-day activities such as bathing, preparing meals, shopping, managing finances, etc.?: No Are you currently unemployed and looking for a job?: No Are you interested in more education?: No Please select the resources that you would like help with: None Currently or been in a relationship where the following occur: No concerns reported THRIVE Score: 0 KOMAL-7 AMB Questionnaire KOMAL-7 Date KOMAL - 7 assessed: 02/12/25 Source: Developed by Drs. Mayco Pelletier, Rachel Hu, Roge Fairchild and colleagues, with an educational sylvain from [employer]. Review of Systems Const Denies chills, Denies fatigue, Denies fever(s), Denies headache(s) and Denies weakness ENT Denies dizziness and Denies headache(s) Card Denies dyspnea Resp Denies cough, Denies dyspnea, Denies wheezing and Denies other (shortness of breath) Musc Denies numbness and Denies tingling Neuro Denies dizziness, Denies headache(s), Denies numbness, Denies tingling and Denies weakness Psych Denies anxiety and Denies depression Endo Denies fatigue Aller/Immun Denies wheezing Physical exam (Primary Care) Vital Signs: Last Vital Signs Temp 97.6 F 05/01/25 14:40 Pulse 64 05/01/25 14:40 Resp 16 05/01/25 14:40 BP 130/68 05/01/25 14:40 Pulse Ox 97 05/01/25 14:40 Oxygen Delivery Method Room Air 05/01/25 14:40 BMI result Body Mass Index 28.9 Tobacco/Smoking Status: Tobacco use Status Tobacco use date assessed 05/01/25 05/01/25 14:45 Patient Tobacco Use Status Never used Tobacco 05/01/25 14:45 e-Cigarette/Vaping Use Never Used 05/01/25 14:45 Thrive Assessment: Date of Thrive Assessment Date Thrive assessed 09/23/24 05/01/25 14:45 Currently or been in a relationship where the following occur: No concerns reported Const General: well developed; No acute distress Nutritional Appearance: well nourished Orientation/consciousness: patient oriented x3 HENMT Head: Yes normocephalic and Yes atraumatic Eyes General: appearance normal, both eyes and all related structures Pupils: Equal, round and reactive pupils present EOM: EOMs intact bilaterally Resp Effort & Inspection: normal respiratory effort Neuro General: patient oriented x3 and gait normal Cranial nerves: Yes Equal, round and reactive pupils present Psych Affect: normal affect Results AMB Hemoglobin A1c AMB Hemoglobin A1c 5.7 % Last Edit by Zuleima Leon CMA on 05/01/25 16:29 Coding Level of Care Code Est Pt Level 5 (40244) Diagnoses Atrial flutter I48.92 Essential hypertension I10 CRF (chronic renal failure) N18.9 Diabetes type 2, controlled E11.9 Screening for prostate cancer Z12.5 Neoplasm of uncertain behavior of skin D48.5 Assessment & Plan Assessment & Plan (1) Atrial flutter: Code(s): I48.92 - Unspecified atrial flutter Category: Medical Plan: Spoke to patient regarding prior EKG read by me as atrial flutter We had a long conversation that unfortunately, EKG was not scanned into the system and I can not refer to it further. EKG in cardiology showed normal sinus rhythm. Patient chooses to remain on metoprolol and Eliquis, understanding that currently no irregular rhythm is seen but that he could have intermittent arrhythmias. He has an upcoming echocardiogram and also Holter monitor test. Encouraged the Holter monitor test. He has follow-up with Cardiology (2) Essential hypertension: Code(s): I10 - Essential (primary) hypertension Category: Medical Plan: Blood pressure is controlled Continue current medication regimen; currently metoprolol. (3) CRF (chronic renal failure): Code(s): N18.9 - Chronic kidney disease, unspecified Category: Medical Plan: Followed by Dr. Montes His matcher operator was concern regarding a component of hypoperfusion Rising creatinine and lisinopril was discontinued. Ultrasound of kidneys showed renal cyst but otherwise unremarkable Blood pressure controlled with metoprolol Follow-up with nephrology as recommended (4) Diabetes type 2, controlled: Code(s): E11.9 - Type 2 diabetes mellitus without complications Category: Medical Plan: A1c 5.7% Good control. Goal is less than 7.0% Continue current medications (5) Screening for prostate cancer: Code(s): Z12.5 - Encounter for screening for malignant neoplasm of prostate Category: Medical Plan: PSA is within normal range Continue annual screening (6) Neoplasm of uncertain behavior of skin: Code(s): D48.5 - Neoplasm of uncertain behavior of skin Category: Medical Plan: Sun damaged skin and a few melanotic lesions that discussed, should be looked at by Dermatology. He would like to consider this at our next visit Will follow-up on this with him
[2025-05-01 14:40] VITALS: BP 130/68; PULSE 64; RESP 16; TEMP 36.4; O2SAT 97; BMI 28.9
== END 2025-05-01 15:16 | disposition home or self-care (01) ==
LOC: HO.HMCFM 14:27
PROVIDERS: PCP Family Medicine; Visit Provider Family Medicine
DX: I48.92 Unspecified atrial flutter (principal); I12.9 Hypertensive chronic kidney disease with stage 1 through stage 4 chronic kidney disease, or unspecified chronic kidney disease; N18.9 Chronic kidney disease, unspecified; E11.9 Type 2 diabetes mellitus without complications; Z12.5 Encounter for screening for malignant neoplasm of prostate; D48.5 Neoplasm of uncertain behavior of skin

== ENCOUNTER → 2025-05-01 14:26 | Outpatient (BNVA) | payer MEDICARE, SELFPAY | PROVIDERS: PCP Family Medicine; Visit Provider Family Medicine | DX: I48.92 Unspecified atrial flutter (principal); E11.22 Type 2 diabetes mellitus with diabetic chronic kidney disease; I12.9 Hypertensive chronic kidney disease with stage 1 through stage 4 chronic kidney disease, or unspecified chronic kidney disease; N18.9 Chronic kidney disease, unspecified; D48.5 Neoplasm of uncertain behavior of skin | CPT/HCPCS: 83036; 99212 ==

== ENCOUNTER → 2025-05-05 10:49 | Outpatient (REF) | payer MEDICARE, SELFPAY ==
--- NOTE | 2025-05-05 10:51 | CA_ITS ---
Transthoracic Echocardiogram Patient (Last, First, Middle): Jarvis Whitfield, Gender: Male Date of : 1940 Age: 84 Procedure Date: 05/05/2025 Procedure Type: Transthoracic Echocardiogram Location: OP Height: 180.34 cm Weight: 93.9 kg BSA: 2.14 m2 Heart Rate: bpm BP: 130 / 68 mmHg Continuous Process Tanner Rotary Drum: [id number] Referring MD: Tr Diaz MD Symptoms: I48.92 - Unspecified atrial flutter Study Quality: Fair ECG Rhythm: Possible atrial flutter Conclusions: - The left ventricular systolic function is mildly decreased. The calculated ejection fraction is 46% by biplane method. - No obvious valvular pathology seen on this study. - There is mild dilatation of the ascending aorta measuring 4.00 cm. Findings Left Ventricle Normal left ventricular cavity size. There is mildly increased left ventricular wall thickness. The left ventricular systolic function is mildly decreased. The calculated ejection fraction is 46% by biplane method. There is mild global hypokinesis. Diastolic function is indeterminate on the basis of available data. Right Ventricle Mildly increased right ventricular cavity size. There is mildly decreased right ventricular systolic function. Atria Mild biatrial enlargement. Aortic Valve There is a normal trileaflet aortic valve. There is no aortic valve stenosis. There is no aortic valve regurgitation. Mitral Valve The mitral valve appears normal. There is no mitral valve regurgitation. There is no mitral valve stenosis. Pulmonic Valve The pulmonic valve is likely normal. Tricuspid Valve There is trace tricuspid valve regurgitation. There is no evidence of pulmonary hypertension. Great Vessels There is mild dilatation of the ascending aorta measuring 4.00 cm. Small plaque is seen in the sino tubular ridge. Venous The inferior vena cava is normal in size and collapses greater than 50% with inspiration. Pericardium/Pleural There is no evidence of pericardial effusion. Prior Study Comparison No prior study available for comparison. Recommendations, Care & Conclusions No obvious valvular pathology seen on this study. Measurements 2D Linear Measurements IVSd: 1.21 0.6-0.9/0.6-1.0 cm LVIDd: 4.68 3.9-5.3/4.2-5.9 cm LVIDd Index: 2.19 2.4-3.2/2.2-3.1 cm/m2 LVIDs: 3.89 2.0-3.6 cm LVPWd: 1.04 0.7-1.1 cm LA Diam: 4.50 2.7-3.8/3.0-4.0 cm LAIDs Index: 2.10 1.5-2.3 cm/m2 LV Mass: 239.52 67-162/88-224 g LV Mass Index: 111.93 43-95/49-115 g/m2 LVOT Diam: 2.20 3.0+(-)1.3 cm 2D Systolic Function EF 4C: 43.70 >55% EF 2C: 48.50 >55% EF BiP: 45.60 >55% Mitral Valve MV Pk E: 0.91 MV Decel Time: 190.00 E'Lateral: 7.72 E'Medial: 6.47 E/E' Med: 14.10 E/E' Lat: 11.80 PHT: 56.00 MVA PHT: 3.93 Decel [place]: 5.56 Aortic Valve AoV Pk Yamil: 1.02 AoV Mn Yamil: 0.75 AoV VTI: 0.19 AoV Pk Grad: 4.00 Aov Mn Grad: 3.00 PAULINA Cont.VTI: 2.49 LVOT LVOT Pk Yamil: 0.67 LVOT Mn Yamil: 0.43 LVOT VTI: 0.12 LVOT Pk Grad: 2.00 LVOT Mn Grad: 1.00 LVOT Diam: 2.20 LVOT Area: 3.80 Diastolic Function MV Pk E: 0.91 E'Medial: 6.47 E/E' Med: 14.10 E' Laterial: 7.72 E/E' Lat: 11.80 Right Ventricle TAPSE (mm): 17.70 TVS' Yamil: 9.08 Tricuspid Valve TR Pk Yamil: 2.02 TR Pk Grad: 16.00 RA Press: 3.00 RVSP: 19.00 Great Vessels Aorta Sinus of Valsalva: 3.72 2.0-3.[address] [place]: 3.04 1.7-3.4 cm Ao Asc: 4.00 2.1-3.4 cm Ao Arch: 3.70 Updated in Other Vendor System with Status of Final Tr Diaz MD electronically signed on 05/06/2025 10:20:03 AM with status of Final
--- OUTSIDE RECORDS SUMMARY | 2025-05-05 13:22 | XMS_ITS | Patient Health Record ---
Author Organization [facility] Address [address] [place] [address] Care Team Providers Care Cyber Intelligence Analyst Name Role Phone Arelis CAMPOS, Aide Primary Care Provider UnavailMayco Horton Unavailable [phone] Reason For Referral No Information Medications Medication [...] Problem Status W/U Status Risk Notes Problem [id number] Heme + stool (R19.5) Active confirmed Plan Of Treatment Future Test Test Name Order Date COLONOSCOPY 01/03/2018 Insurance Providers Payer Name Payer Address Payer Phone Subscriber Number Group Number Insured Name Patient Relationship to Insured Coverage Start Date Coverage End Date [facility] [address] [facility] [place], [place] [phone] [id number] SONU BENDER Self - patient is the insured Medical (General) History Medical History History ICD Code Sleep apnea- CPAP machine NIDDM Denies [place],CVA,Lung disease,renal disease Hypercholesterolemia Told of a HH after an UGI HTN Anxiety
== END ==
LOC: HO.CARD 10:49
PROVIDERS: PCP Family Medicine; Visit Provider Internal Medicine
DX: I48.92 Unspecified atrial flutter (principal)
CPT/HCPCS: 93242; 93306; 99212

== ENCOUNTER → 2025-05-05 10:51 | Outpatient (BNV) | payer MEDICARE, SELFPAY | PROVIDERS: PCP Family Medicine; Visit Provider Internal Medicine | DX: I48.92 Unspecified atrial flutter (principal); I77.810 Thoracic aortic ectasia | CPT/HCPCS: 93306 ==

== ENCOUNTER 2025-05-05 14:11 | Outpatient (AMB) | payer MEDICARE, SELFPAY ==
--- NOTE | 2025-05-05 14:14 | HO.NEPHOV ---
Vital Signs 05/05/25 14:15 Height 5 ft 11 in Weight 207 lb BMI 28.9 BP 130/68 Blood Pressure Location Rt brachial Position Sitting Pulse 113 H Pulse Source Pulse Oximeter Pulse Oximetry (%) 96 Oxygen Delivery Method Room Air Intake Visit Reasons: -M Nuclear Reactor Operator Required: No Accompanied by: Self / Same As Patient Allergies No Known Allergies (No Known Allergies*) Allergy (Verified 05/05/25 14:17) Medication List - Last Reconciled 05/05/25 by Jose Roberto Montes MD albuterol sulfate 90 mcg/actuation (Ventolin HFA) 2 puffs inhalation Q4-6H PRN APAP Machine/Device CPAP/APAP 6-20 CM H2O, Daily, As directed. 999 days. Kit with tubing, mask & supplies. apixaban 2.5 mg PO BID 30 days dapagliflozin propanediol 10 mg PO DAILY 90 days glipizide ER 5 mg PO QAM 90 days levothyroxine (Synthroid) 25 mcg PO DAILY 90 days lorazepam 1mg daytime and 1.5mg at bedtime orally 2 times a day; MassPat verified. Partial refill upon request. 30 days metformin 500 mg PO BID 90 days metoprolol succinate ER 12.5 mg (1/2 x 25 mg) PO DAILY 90 days miscellaneous medical supply [employer] CPAP/APAP machine, [id number], Daily As directed, 999 days omeprazole 20 mg PO DAILY 90 days sertraline 100 mg PO DAILY simvastatin 40 mg PO DAILY 90 days HPI Comments Details: 84-year-old male presenting with chronic kidney disease and prediabetes. His kidney function has shown fluctuations in creatinine levels, with the most recent being 1.84 mg/dL, and an eGFR of approximately 38% to 44%. He has a history of prediabetes, managed with metformin, and currently takes Farxiga, which was recently increased to 10 mg. The patient is also diagnosed with hypertension, managed with lisinopril 20 mg QD, No significant proteinuria No retinopathy per [employer] He has been using a CPAP machine for sleep apnea for over a decade, with regular adherence. 03/11/25 Overall doing well. No new compliants Creatinine has bumped up to 2.1 05/05/2025. After lowering lisinopril BUN has decreased from 40 down to 26. Creatinine is pending Currently undergoing Holter monitoring [facility] Medical History (Updated 05/01/25 @ 15:07 by Maxime Pappas) Otogenic otalgia of right ear Cerumen impaction Surgical History No pertinent past surgical history Family History Brother Prostate cancer Son Muscular dystrophy Social History Household Members: Children Housing: House Alcohol intake: never Patient Tobacco Use Status: Never used Tobacco e-Cigarette/Vaping Use: Never Used Second Hand Smoke Exposure: No service: No Current occupational status: retired Current occupational exposures/hazards: No Cognitive needs: No Hearing needs: Yes (hearing aide) Vision needs: No Physical Exam Vital Signs: Last Vital Signs Pulse 113 H 05/05/25 14:15 BP 130/68 05/05/25 14:15 Pulse Ox 96 05/05/25 14:15 Oxygen Delivery Method Room Air 05/05/25 14:15 BMI result Body Mass Index 28.9 Comfortable Neck supple no JVD. Lungs entry equal no rales. Heart S1-S2 heard no gallop or rub. Abdomen soft nontender. Neuro alert awake oriented. No asterixis. Extremities no edema. Results Reviewed Nephrology Results: Sodium, (135-145) 140 mmol/L 04/08/25 Potassium, (3.3-5.1) 4.8 mmol/L 04/08/25 Chloride, (96-108) 107 mmol/L 04/08/25 Carbon Dioxide, (22-29) 24 mmol/L 04/08/25 BUN, (9-16) 26 mg/dL H 04/28/25 Creatinine, (0.5-1.4) 2.11 mg/dL H 04/08/25 Calcium, (8.4-10.2) 8.9 mg/dL 04/08/25 Urine Protein, (Neg-Trace) Trace mg/dL 04/28/25 Renal US 02/10/25 Assessment & Plan Assessment & Plan (1) Essential hypertension: Code(s): I10 - Essential (primary) hypertension Category: Medical (2) CKD (chronic kidney disease) stage 3, GFR 30-59 ml/min: Code(s): N18.30 - Chronic kidney disease, stage 3 unspecified Category: Medical Plan CKD 3 in the setting of longstanding diabetes mellitus. 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 No significant proteinuria. No clinical indication suggestive of glomerular nephritis or interstitial disease. There could be a component of hypoperfusion contributing to the decline in GFR. Significant improvement in BUN. Creatinine is pending Blood pressure is acceptable. renal ultrasonogram- No hydronephrosis/obstruction UA is benign No hematuria or proteinuria Recommendations Increase p.o. fluid intake Continue to hold lisinopril 10 mg a day Maintain blood pressure around 120/80 and avoid hypotension. Continue to maintain hemoglobin A1c less than 7%. Avoid nephrotoxins/NSAIDS Orders: Orders Creatinine Urine 3 Months N18.30 - Chronic kidney disease, stage 3 unspecified Basic Metabolic Panel 3 Months N18.30 - Chronic kidney disease, stage 3 unspecified Total Protein Urine Random 3 Months N18.30 - Chronic kidney disease, stage 3 unspecified UA and rflx microscopic 3 Months N18.30 - Chronic kidney disease, stage 3 unspecified Coding Level of Care Code Est Pt Level 4 (20718) Diagnoses Essential hypertension I10 CKD (chronic kidney disease) stage 3, GFR 30-59 ml/min N18.30
[2025-05-05 14:15] VITALS: BP 130/68; PULSE 113; O2SAT 96; BMI 28.9
== END 2025-05-05 14:27 | disposition home or self-care (01) ==
LOC: HO.HKA 14:12
PROVIDERS: PCP Family Medicine; Visit Provider Internal Medicine Hypertension Specialist
DX: I10 Essential (primary) hypertension (principal); N18.30 Chronic kidney disease, stage 3 unspecified
CPT/HCPCS: 99214

== ENCOUNTER 2025-06-09 13:51 | Outpatient (AMB) | payer MEDICARE, SELFPAY ==
--- NOTE | 2025-06-09 14:17 | A.OFFVIS_ITS ---
Vital Signs 06/09/25 14:18 Height 5 ft 11 in Weight 209 lb 7.026 oz BMI 29.2 BP 128/70 Blood Pressure Location Lt brachial Position Sitting Pulse 72 Pulse Source Pulse Oximeter Intake Visit Reasons: s/p echo/ holter Allergies No Known Allergies (No Known Allergies*) Allergy (Verified 05/05/25 14:17) Medication List - Last Reconciled 06/09/25 by Tr Diaz MD albuterol sulfate 90 mcg/actuation (Ventolin HFA) 2 puffs inhalation Q4-6H PRN APAP Machine/Device CPAP/APAP 6-20 CM H2O, Daily, As directed. 999 days. Kit with tubing, mask & supplies. apixaban 2.5 mg PO BID 30 days dapagliflozin propanediol 10 mg PO DAILY 90 days glipizide ER 5 mg PO QAM 90 days levothyroxine (Synthroid) 25 mcg PO DAILY 90 days lorazepam 1mg daytime and 1.5mg at bedtime orally 2 times a day; MassPat verified. Partial refill upon request. 30 days metformin 500 mg PO BID 90 days metoprolol succinate ER 25 mg PO BID 90 days miscellaneous medical supply [employer] CPAP/APAP machine, [id number], Daily As directed, 999 days omeprazole 20 mg PO DAILY 90 days sertraline 100 mg PO DAILY simvastatin 40 mg PO DAILY 90 days HPI Comments Details: Jarvis returns for follow-up. In the past, seen regarding question of atrial flutter. Patient had an EKG at primary care physician's office and thought to have had atrial flutter. Patient himself does not have any clear-cut cardiac symptoms. No history of any coronary disease myocardial infarction or cardiomyopathy either. He has a history of obstructive sleep apnea on CPAP. Has diabetes, hyperlipidemia, CKD. Overall, he states he feels good. No new concerns. He does not feel any palpitations. Has some nonspecific fatigue, that he thinks could be related to the Metoprolol. [facility] Medical History (Updated 06/09/25 @ 14:45 by Tr Diaz MD) Otogenic otalgia of right ear Cerumen impaction Surgical History No pertinent past surgical history Family History Brother Prostate cancer Son Muscular dystrophy Social History Household Members: Children Housing: House Alcohol intake: never Patient Tobacco Use Status: Never used Tobacco e-Cigarette/Vaping Use: Never Used Second Hand Smoke Exposure: No service: No Current occupational status: retired Current occupational exposures/hazards: No Cognitive needs: No Hearing needs: Yes (hearing aide) Vision needs: No Review of Systems Const Denies weakness ENT Denies dizziness Card Denies chest pain, Denies chest pain with activity, Denies syncope, Denies rapid heart rate, Denies pedal edema, Denies edema, Denies leg edema, Denies lightheadedness, Denies palpitations, Denies dyspnea, Denies dyspnea on exertion and Denies orthopnea Resp Denies cough, Denies dyspnea and Denies dyspnea on exertion GI Denies hematochezia and Denies change in stool character Musc Denies abnormal gait, Denies muscle cramps, Denies muscle weakness, Denies numbness, Denies radiating pain into limb and Denies tingling Neuro Denies abnormal gait, Denies dizziness, Denies syncope, Denies numbness, Denies tingling and Denies weakness Endo Denies palpitations Physical Exam Vital Signs: Last Vital Signs Pulse 72 06/09/25 14:18 BP 128/70 06/09/25 14:18 BMI result Body Mass Index 29.2 Const General: comfortable and no acute distress Orientation/consciousness: patient oriented x3 HEENT Other: Unremarkable Head: Yes normal to inspection Neck Neck: Yes normal visual inspection Chest Chest palpation & inspection: normal inspection of the chest Resp Auscultation: clear to auscultation bilaterally Cardio Palpation: normal PMI Heart sounds: S1 normal heart sound present, S2 normal heart sound present, no gallops, no murmurs and no rubs GI Palpation (GI): Soft to palpation Back/Spine/Pelvis Other: unremarkable Skin General skin exam: no rashes or lesions noted Neuro General: patient oriented x3 Extrem General: Yes normal to inspection Psych Mental Status: mental status grossly normal Assessment & Plan Assessment & Plan (1) Paroxysmal atrial fibrillation: Code(s): I48.0 - Paroxysmal atrial fibrillation Category: Medical Plan: Recent EKG from PCP office suggestive of atrial fibrillation at a rate of 108/Min. In the Holter monitor, underlying rhythm is sinus with an average rate of 77/Min with atrial fibrillation burden of clinically%. We discussed about the findings with patient states he has got absolutely no symptoms. Recently, beta-zeke dose has been increased and continue that. We can recheck Holter on the higher dose of beta-blockers. If reason with the atrial fibrillation burden, consider adding diltiazem. Continue anticoagulation, Eliquis dose adjusted for age and renal function. (2) Cardiomyopathy: Code(s): I42.9 - Cardiomyopathy, unspecified Category: Medical Plan: In the echocardiogram, LVEF 46%. Could be tachycardia mediated. Clinically, no overt symptoms from this. Plan Discussion Notes I discussed with the patient the presence of atrial fibrillation, which was detected during monitoring, and the plan to use a short-term heart monitor to evaluate the effectiveness of metoprolol. We also talked about the potential side effects of metoprolol, including fatigue, and the possibility of adjusting medication if necessary. Patient was informed and verbally consented to the use of an ambient scribe for clinic note documentation during this visit. Orders: Orders ECG 3 day holter monitor Today I48.0 - Paroxysmal atrial fibrillation Patient Instructions: - Continue taking Metoprolol as prescribed. - Undergo Holter as scheduled. - Monitor for any new or worsening symptoms and report them to the healthcare provider. - Follow up as instructed for further evaluation and management. Coding Level of Care Code Est Pt Level 4 (79601) Complex EM visit Add On G2211 Diagnoses Paroxysmal atrial fibrillation I48.0 Cardiomyopathy I42.9
[2025-06-09 14:18] VITALS: BP 128/70; PULSE 72; BMI 29.2
--- OUTSIDE RECORDS SUMMARY | 2025-06-09 17:31 | XMS_ITS | Patient Health Record ---
Author Organization [facility] Address [address] [place] [address] Care Team Providers Care Bartender Name Role Phone Arelis CAMPOS, Aide Primary Care Provider UnavailMayco Horton Unavailable [phone] Reason For Referral No Information Medications Medication SIG (Take, Route, Fr equency, Duration) Notes Start Date End Date Status Ranitidine HCl 150 MG TK 1 T PO BID Oral ; Duration: 30 Active Sertraline HCl 100 MG TK 1 T PO QD Oral; Duration: 30 Active metFORMIN HCl 1000 MG TK 1 T PO BID Oral Twice a day Active Omeprazole 20 MG 1 capsule Orally Onc e a day; Duration: 30 day(s) 01/06/2018 Active LORazepam 1 MG 1 ml at bedtime as n eeded Oral bid Active Simvastatin 40 MG TK 1 T PO QD Oral; D uration: 30 Active Lisinopril 10 MG TK 1 T PO DAILY Oral ; Duration: 30 Active Social History Tobacco Use: Social [...] Problem Status W/U Status Risk Notes Problem Abnormal feces ([id number]) Heme + stool (R19.5) Active confirmed Plan Of Treatment Future Test Test Name Order Date COLONOSCOPY 01/03/2018 Insurance Providers Payer Name Payer Address Payer Phone Subscriber Number Group Number Insured Name Patient Relationship to Insured Coverage Start Date Coverage End Date [facility] [address] [place] [address] [id number] SONU BENDER Self - patient is the insured Medical (General) History Medical History History ICD Code Sleep apnea- CPAP machine NIDDM Denies [place],CVA,Lung disease,renal disease Hypercholesterolemia Told of a HH after an UGI HTN Anxiety
== END 2025-06-09 14:40 | disposition home or self-care (01) ==
LOC: HO.HCS 13:52
PROVIDERS: PCP Nurse Practitioner Family; Visit Provider Internal Medicine
DX: I48.0 Paroxysmal atrial fibrillation (principal); I42.9 Cardiomyopathy, unspecified
CPT/HCPCS: 99214; G2211

== ENCOUNTER → 2025-06-09 13:51 | Outpatient (BNVA) | payer MEDICARE, SELFPAY | PROVIDERS: PCP Nurse Practitioner Family; Visit Provider Internal Medicine | DX: I48.0 Paroxysmal atrial fibrillation (principal); I42.9 Cardiomyopathy, unspecified | CPT/HCPCS: 99212 ==

== ENCOUNTER → 2025-06-19 13:25 | Outpatient (REF) | payer MEDICARE, SELFPAY ==
--- NOTE | 2025-06-19 13:41 | HM_ITS ---
* Total monitoring time 3 days. * Underlying rhythm is sinus with an average ventricular rate of 67/min. * Atrial fibrillation noted about 25% of the time. Longest episode 11 hours. Fastest 127/Min. * Rare supraventricular ectopy. * Rare ventricular ectopy. * No significant pauses or high-grade AV blocks. * No patient markers or diary events. MTDD
--- OUTSIDE RECORDS SUMMARY | 2025-06-19 16:18 | XMS_ITS | Patient Health Record ---
Author Organization [facility] Address [address] [place] [address] Care Team Providers Care Event Mgr Name Role Phone Arelis CAMPOS, Aide Primary Care Provider UnavailMayco Horton Unavailable [phone] Reason For Referral No Information Medications Medication [...] W/U Status Risk Notes Problem Abnormal feces ([id number]) Heme + stool (R19.5) Active confirmed Plan Of Treatment Future Test Test Name Order Date COLONOSCOPY 01/03/2018 Insurance Providers Payer Name Payer Address Payer Phone Subscriber Number Group Number Insured Name Patient Relationship to Insured Coverage Start Date Coverage End Date [facility] [address] [place] [address] [id number] SONU BENDER Self - patient is the insured Medical (General) History Medical History History ICD Code Sleep apnea- CPAP machine NIDDM Denies [place],CVA,Lung disease,renal disease Hypercholesterolemia Told of a HH after an UGI HTN Anxiety
== END ==
LOC: HO.CARD 13:25
PROVIDERS: PCP Nurse Practitioner Family; Visit Provider Internal Medicine
DX: I48.0 Paroxysmal atrial fibrillation (principal)
CPT/HCPCS: 93242

== ENCOUNTER → 2025-06-19 13:41 | Outpatient (BNV) | payer MEDICARE, SELFPAY | PROVIDERS: PCP Nurse Practitioner Family; Visit Provider Internal Medicine | DX: I48.91 Unspecified atrial fibrillation (principal) | CPT/HCPCS: 93244 ==

== ENCOUNTER 2025-07-18 11:34 | Outpatient (AMB) | payer MEDICARE, SELFPAY ==
--- NOTE | 2025-07-18 12:16 | MHC.PC.OV ---
Vital Signs 07/18/25 12:21 Height 5 ft 11 in Weight 212 lb BMI 29.6 BP 124/64 Blood Pressure Location Rt brachial Position Sitting Respiration 16 Pulse 60 Pulse Source Pulse Oximeter Temp 97.4 F Temp Source Temporal Artery Scan Pulse Oximetry (%) 96 Oxygen Delivery Method Room Air Intake Visit Reasons: f/u chronic conditions Intake Note: Jarvis presents in the office today to follow up diabetes and other chronic condidtions. 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 A1c today 07/18/25 6.1%. He is on metformin 500mg b.i.d, glipizide 5mg. Had been following up with cardiology. Recent EKG suggestive of AFib. They continue anticoagulation. HPI Comments History of Present Illness Details Documentation assistance for Naga Leon MD, was provided by Maxime Pappas, Cranberry Sorter on 07/18/2025 at 12:47 PM EST. I, Dr. Leon, have read, observed, and verified documentation. [facility] Medical History (Updated 06/09/25 @ 14:45 by Tr Diaz MD) Otogenic otalgia of right ear Cerumen impaction Surgical History No pertinent past surgical history Family History Brother Prostate cancer Son Muscular dystrophy Social History (Updated 07/18/25 @ 12:21 by Maddy Quinones CMA) Household Members: Children Housing: House Alcohol intake: never Patient Tobacco Use Status: Never used Tobacco e-Cigarette/Vaping Use: Never Used Second Hand Smoke Exposure: No service: No Current occupational status: retired Current occupational exposures/hazards: No Cognitive needs: No Hearing needs: Yes (hearing aide) Vision needs: No Questionnaire Thrive Questionnaire Date Thrive assessed: 09/23/24 I am a: Patient What is your living situation today?: I have a steady place to live Within the past 12 months, did the food you bought not last and you didn't have the money to get more?: Never true Within the past 12 months, did you worry whether your food would run out before you got money to buy more?: Never true Do you have trouble paying for medicines?: No Do you have trouble getting transportation to medical appointments?: No Do you have trouble paying your heating and electricity bill?: No Do you have trouble taking care of your child, family member or friend?: No Do you have trouble with day-to-day activities such as bathing, preparing meals, shopping, managing finances, etc.?: No Are you currently unemployed and looking for a job?: No Are you interested in more education?: No Please select the resources that you would like help with: None Currently or been in a relationship where the following occur: No concerns reported THRIVE Score: 0 KOMAL-7 AMB Questionnaire KOMAL-7 Date KOMAL - 7 assessed: 02/12/25 Source: Developed by Drs. Mayco Pelletier, Rachel Hu, Roge Fairchild and colleagues, with an educational sylvain from [employer] Review of Systems Const Denies chills, Denies fatigue, Denies fever(s), Denies headache(s) and Denies weakness ENT Denies dizziness and Denies headache(s) Card Denies chest pain, Denies lightheadedness, Denies dyspnea and Denies other (Palpitations) Resp Denies cough, Denies dyspnea, Denies wheezing and Denies other ( shortness of breath) Musc Denies numbness and Denies tingling Neuro Denies dizziness, Denies headache(s), Denies numbness, Denies tingling, Denies paresthesias and Denies weakness Psych Denies anxiety and Denies depression Endo Denies fatigue Aller/Immun Denies wheezing Physical exam (Primary Care) Vital Signs: Last Vital Signs Temp 97.4 F 07/18/25 12:21 Pulse 60 07/18/25 12:21 Resp 16 07/18/25 12:21 BP 124/64 07/18/25 12:21 Pulse Ox 96 07/18/25 12:21 Oxygen Delivery Method Room Air 07/18/25 12:21 BMI result Body Mass Index 29.6 Tobacco/Smoking Status: Tobacco use Status Tobacco use date assessed 07/18/25 07/18/25 12:25 Patient Tobacco Use Status Never used Tobacco 07/18/25 12:21 e-Cigarette/Vaping Use Never Used 07/18/25 12:21 Thrive Assessment: Date of Thrive Assessment Date Thrive assessed 09/23/24 07/18/25 12:17 Currently or been in a relationship where the following occur: No concerns reported Const General: no acute distress and well developed Nutritional Appearance: well nourished Orientation/consciousness: patient oriented x3 HENMT Head: Yes normocephalic and Yes atraumatic Eyes General: appearance normal, both eyes and all related structures Pupils: Equal, round and reactive pupils present EOM: EOMs intact bilaterally Resp Effort & Inspection: normal respiratory effort Auscultation: clear to auscultation bilaterally Cardio Rate: regular rate Rhythm: regular rhythm Heart sounds: S1 normal heart sound present, S2 normal heart sound present, no gallops, no murmurs and no rubs Neuro General: patient oriented x3 and gait normal Cranial nerves: Yes Equal, round and reactive pupils present Psych Affect: normal affect Results AMB Hemoglobin A1c AMB Hemoglobin A1c 6.1 % Last Edit by Maddy Quinones CMA on 07/18/25 12:42 Results Reviewed Results Reviewed: Laboratory Last Values Hgb A1c (Clinic) 6.1 % (4.0-6.0) H 07/18/25 12:26 Coding Level of Care Code Est Pt Level 4 (16960) Diagnoses Diabetes type 2, controlled E11.9 Essential hypertension I10 Paroxysmal atrial fibrillation I48.0 Assessment & Plan Assessment & Plan (1) Diabetes type 2, controlled: Code(s): E11.9 - Type 2 diabetes mellitus without complications Category: Medical Plan: A1c 6.1%. Good control. Goal is less than 7%. Continue current medications (2) Essential hypertension: Code(s): I10 - Essential (primary) hypertension Category: Medical Plan: Blood pressure is well controlled. Goal is less than 140/90 Continue current medications (3) Paroxysmal atrial fibrillation: Code(s): I48.0 - Paroxysmal atrial fibrillation Category: Medical Plan: Now followed by cardiology. 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 He is on Eliquis Tolerating these medications well Follow-up with Cardiology as recommended Orders: Orders AMB Hemoglobin A1c Today E11.9 - Type 2 diabetes mellitus without complications
[2025-07-18 12:21] VITALS: BP 124/64; PULSE 60; RESP 16; TEMP 36.3; O2SAT 96; BMI 29.6
== END 2025-07-18 12:55 | disposition home or self-care (01) ==
LOC: HO.HMCFM 11:35
PROVIDERS: PCP Family Medicine; Visit Provider Family Medicine
DX: E11.9 Type 2 diabetes mellitus without complications (principal); I10 Essential (primary) hypertension; I48.0 Paroxysmal atrial fibrillation

== ENCOUNTER → 2025-07-18 11:34 | Outpatient (BNVA) | payer MEDICARE, SELFPAY | PROVIDERS: PCP Family Medicine; Visit Provider Family Medicine | DX: I48.0 Paroxysmal atrial fibrillation (principal); I10 Essential (primary) hypertension; E11.9 Type 2 diabetes mellitus without complications | CPT/HCPCS: 83036; 99212 ==

== ENCOUNTER 2025-08-11 12:42 | Outpatient (REF) | payer MEDICARE, SELFPAY ==
[2025-08-11 14:29] LABS: Anion Gap 12 (12-20); Blood Urea Nitrogen 30 mg/dL (9-16); Calcium 8.8 mg/dL (8.4-10.2); Carbon Dioxide 22 mmol/L (22-29); Chloride 109 mmol/L (96-108); Estimated Glomerular Filt Rate 37; Potassium 4.4 mmol/L (3.3-5.1); Sodium 139 mmol/L (135-145)
--- OUTSIDE RECORDS SUMMARY | 2025-08-11 14:34 | XMS_ITS | Patient Health Record ---
Author Organization [facility] Address [address] [place] [address] Care Team Providers Care Assembler [employer]ather Goods Name Role Phone Arelis CAMPOS, Aide Primary Care Provider Mayco Moyer [phone] Reason For Referral No Information Medications Medication SIG (Take, Route, Frequency, Duration) Notes Start Date End Date Status raNITIdine HCl 150 MG Tablet TK 1 T PO BID Oral; Duration: 30 Active Sertraline HCl 100 MG Tablet TK 1 T PO QD Oral; Duration: 30 Active metFORMIN HCl 1000 MG Tablet TK 1 T PO BID Oral Twice a day Active Omeprazole 20 MG Capsule Delayed Release 1 capsule Orally Once a day; Duration: 30 day(s) 01/06/2018 Active LORazepam 1 MG Tablet 1 ml at bedtime as needed Oral bid Active Simvastatin 40 MG Tablet TK 1 T PO QD Or al; Duration: 30 Active Lisinopril 10 MG Tablet TK 1 T PO DAILY Oral; Duration: 30 Active Social History Tobacco Use: Social History Observation Description Date Details (start date - stop date) Former Smoker NA - NA Social History Drugs/Alcohol: Social Info Question Answer Notes Alcohol Screen Did you have a drink containing alcohol in the past year? Yes How often did you have a drink containing alcohol in the past year? Monthly or less (1 point) How many drinks did you have on a typical day when you were drinking in the past year? 1 or 2 drinks (0 point) How often did you have 6 or more drinks on one occasion in the past year? Never (0 point) Points 1 Interpretation Negative Tobacco Use: Social Info Question Answer Notes Tobacco Use/Smoking Patient is a former smoker How long has it been since you last smoked? > 10 years Additional Details Category Social Info Options Details Miscellaneous: Marital status: Occupation: Retired Section Notes: Nonsmoker; Occasional drink Problems Problem Type SNOMED Code ICD Code Onset Dates Problem Status W/U Status Risk Notes Problem Abnormal feces ([id number]) Heme + stool (R19.5) Active confirmed Plan Of Treatment Future Test Test Name Order Date COLONOSCOPY 01/03/2018 Insurance Providers Payer Name Payer Address Payer Phone Subscriber Number Group Number Insured Name Patient Relationship to Insured Coverage Start Date Coverage End Date [facility] [address] [place] [phone] [id number] SONU BENDER Self - patient is the insured Medical (General) History Medical History History ICD Code Sleep apnea- CPAP machine NIDDM Denies [place],CVA,Lung disease,renal disease Hypercholesterolemia Told of a HH after an UGI HTN Anxiety
[2025-08-11 14:45] LABS: Appearance Urine Clear; Glucose Urine UA >=1000 mg/dL (Negative); PH 5.5 (5.0-9.0); Specific Gravity - Urine 1.020 (1.005-1.025); UMIC TRIGGER UA YES
[2025-08-11 15:44] LABS: Total Protein Urine Random 16 mg/dL (<12)
== END 2025-08-11 12:43 ==
LOC: HO.LAB 12:42
PROVIDERS: PCP Family Medicine; Visit Provider Internal Medicine Hypertension Specialist
DX: N18.30 Chronic kidney disease, stage 3 unspecified (principal)
CPT/HCPCS: 36415; 80048; 81001; 82570; 84156